=== PATIENT | male | born 1945 | race Caucasian/White ===

== ENCOUNTER 2020-09-12 10:41 | Outpatient (CLI) | payer MEDICARE, OTHER, SELFPAY | END 2020-09-12 10:42 | disposition home or self-care (01) | LOC: ANHAUDASC 10:46 | PROVIDERS: PCP Internal Medicine; Visit Provider Internal Medicine | DX: H90.3 Sensorineural hearing loss, bilateral (principal) | CPT/HCPCS: 92557; 92567 ==

== ENCOUNTER 2021-01-01 14:59 | Emergency (ER) | payer MEDICARE, OTHER, SELFPAY ==
--- NOTE | ~2021-01-01 | CT_ITS ---
EXAMINATION: CT abdomen pelvis w con DATE: 01/01/2021 15:58 INDICATION: Left lower quadrant abdominal pain TECHNIQUE: Computed tomography (CT) of the abdomen and pelvis was performed without intravenous contr ast. Automated exposure control and iterative reconstruction technique were employed. The dose-length product was 358.42 mGy-cm. COMPARISON: None FINDINGS: Mild peripheral reticular opacities in the bilateral lower lungs which could represent atelectasis, m ild pulmonary edema or chronic interstitial lung disease. Heart size is normal. Atherosclerotic coron frederic artery calcifications. Aortic valve calcification. No pericardial or pleural effusion. Liver, gal lbladder, spleen, pancreas, bilateral adrenal glands are normal. 11 mm low-attenuation right renal cy st. 1 mm nonobstructing stone at the left ureteropelvic junction with mild left hydronephrosis, perin ephric stranding and mildly delayed left nephrogram. Bladder is normal. A few scattered colonic diver ticula without adjacent inflammatory change to suggest diverticulitis. Small bowel and appendix are n ormal. No free intraperitoneal gas or fluid. No pathologically enlarged abdominal or pelvic lymphaden opathy. There is calcified atherosclerosis of the aorta and many of the other arteries. Severe lower lumbar spondylosis. IMPRESSION: 1. At least partially obstructing 1 mm stone at the left ureteropelvic junction with mild left hydron ephrosis and mildly delayed left nephrogram. Reviewed, dictated and finalized at location A. OFFICE MANAGER IMPRESSION: 1. At least partially obstructing 1 mm stone at the left ureteropelvic junction with mild left hydronephrosis and mildly delayed left nephrogram.
[2021-01-01 15:03] VITALS: BP 173/94; PULSE 70; RESP 20; TEMP 36.6; O2SAT 100
--- NOTE | 2021-01-01 15:19 | ED.ABDPAIN ---
HPI - Abdominal Pain General Chief Complaint: Abdominal Pain Stated Complaint: abdominal pain Time Seen by Provider: 01/01/21 15:08 Source: patient Mode of arrival: ambulatory Limitations: no limitations History of Present Illness HPI narrative: THis patient is a 75 year old male who presents for evaluation of left lower abdominal pain. His pain started at 9 am this morning. It has been waxing and waning. It is associated with nausea, but he denies vomiting, diarrhea, fever, urinary complaints. He has has not taking anything for pain. HE denies history of diverticulitis. Pain Consistency: intermittent Related Data Home Medications Medication Instructions Recorded Confirmed irbesartan 150 mg PO DAILY 01/01/21 01/01/21 valacyclovir 500 mg PO DAILY 01/01/21 01/01/21 Allergies Allergy/AdvReac Type Severity Reaction Status Date / Time No Known Allergies Allergy Mild Verified 01/01/21 15:05 Review of Systems Review of Systems: All systems reviewed & are unremarkable except as noted in HPI and below PMFSH Past Medical History Medical History (Updated 01/01/21 @ 18:04 by Indira Vasquez MD) Essential hypertension Surgical History Surgical History (Updated 01/01/21 @ 15:22 by Indira Vasquez MD) No pertinent past surgical history Family History Family History (Updated 06/03/19 @ 11:07 by DOCTOR UNKNOWN) Mother Hypertension Family history of malignant neoplasm of breast in first degree relative Family history of lupus erythematosus Sibling Carcinoma of colon Father Patient's father is Social History Social History Smoking status: Light tobacco smoker Smoking end date: 11/18/03 Alcohol intake: current Gender identity (if verbalized by the patient): Male Exam Const: General: no acute distress and alert Orientation/consciousness: patient oriented x3 Eyes: EOM: EOMs intact bilaterally Resp: Effort & Inspection: normal respiratory effort and no retractions Auscultation: clear to auscultation bilaterally Cardio: Rate: regular rate Rhythm: regular rhythm Heart sounds: no murmurs GI: GI Palp: Yes Soft to palpation, Yes Tenderness to palpation present (GI) (LLQ) and No Guarding due to palpation present (GI) Auscultation: normal bowel sounds : General: Yes no CVA tenderness Skin: Rashes: no rashes Neuro: General: patient oriented x3 and moves all extremities Extrem: General: normal to inspection Psych: Mental Status: mental status grossly normal Affect: normal affect Course Reevaluation(s) Reevaluation #1: I Discussed with patient CT showing small kidney stone. I Discussed discharge treatment plan. He has no complaints at this time. Date: 01/01/21 Time: 18:01 Vital Signs Vital signs: Vital Signs Temperature 97.8 F 01/01/21 15:03 Pulse Rate 70 01/01/21 15:03 Respiratory Rate 20 01/01/21 15:03 Blood Pressure 173/94 H 01/01/21 15:03 Pulse Oximetry 100 01/01/21 15:03 Temperature 97.8 F 01/01/21 15:03 Pulse Rate 64 01/01/21 18:30 Respiratory Rate 18 01/01/21 18:30 Blood Pressure 142/70 H 01/01/21 18:30 Pulse Oximetry 96 01/01/21 18:30 MDM - Abdominal Pain Lab Data Attestation: I reviewed the patient's lab results. Result diagrams: 01/01/21 15:17 01/01/21 15:17 Labs: Lab Results 01/01/21 01/01/21 01/01/21 Range/Units 15:17 15:17 16:21 WBC 7.7 (4.5-10.0) K/mm3 RBC 4.90 (4.6-6.20) M/mm3 Hgb 16.4 (14.0-18.0) g/dL Hct 47.0 (42.0-52.0) % MCV 95.9 (80-100) fl MCH 33.5 (26-34) pg MCHC 34.9 (32-36) g/dl RDW 13.2 (11.5-14.5) % Plt Count 242 (150-375) k/mm3 MPV 9.8 (7.4-10.4) fl Immature Gran % (Auto) 0.5 (0-0.5) % Neut % (Auto) 72.2 (45.5-73.1) % Lymph % (Auto) 21.0 (18.3-44.2) % Forest % (Auto) 5.7 (2.6-8.5) % Eos % (Auto) 0.3 (0-4.4) % Baso % (Auto) 0.3 (0.2-1.2) % Lymph # (Auto)
[2021-01-01 15:24] LABS: Basophils Percent Auto 0.3 % (0.2-1.2); Eosinophils Percent Auto 0.3 % (0-4.4); Hemoglobin 16.4 g/dL (14.0-18.0); Immature Granulocyte Absolute 0.04 K/mm3 (0.00-0.031); Immature Granulocyte Percent A 0.5 % (0-0.5); Lymphocytes Absolute Auto 1.62 K/mm3 (0.9-3.2); Mean Corpuscular HGB Conc 34.9 g/dl (32-36); Mean Corpuscular Hemoglobin 33.5 pg (26-34); Mean Corpuscular Volume 95.9 fl (80-100); Mean Platelet Volume 9.8 fl (7.4-10.4); Monocytes Absolute Auto 0.4 K/mm3 (0.1-0.6); Monocytes Percent Auto 5.7 % (2.6-8.5); Neutrophils Absolute Auto 5.6 K/mm3 (1.3-6.7); Neutrophils Percent Auto 72.2 % (45.5-73.1); Platelet Count Result 242 k/mm3 (150-375); Red Cell Distribution Width 13.2 % (11.5-14.5); White Blood Count 7.7 K/mm3 (4.5-10.0)
[2021-01-01] MEDS: LACTATED RINGERS 1,000 ML 999 ML IV CONT (15:28)
[2021-01-01] MEDS: ONDANSETRON INJ 4 MG/2 ML VIAL IV PUSH (15:29)
[2021-01-01] MEDS: MORPHINE SULFATE (*CRX) 4 MG/ML INJ IV PUSH (15:29)
[2021-01-01 15:37] LABS: Alanine Aminotransferase 19 U/L (4-50); Albumin Level 4.8 g/dL (3.5-5.1); Alkaline Phosphatase 87 U/L (38-126); Anion Gap 8 mmol/L (8-16); Aspartate Amino Transferase 21 U/L (17-59); Bilirubin,Total 0.7 mg/dL (0.2-1.3); Blood Urea Nitrogen 13 mg/dL (9-20); Carbon Dioxide 26 mmol/L (22-30); Chloride 102 mmol/L (98-107); Estimated CRCL calculation 72 ml/min; Estimated Glomerular Filt Rate > 60; Glucose 114 mg/dL (75-110); Lipase 50 U/L (23-300); Sodium 136 mmol/L (137-145)
[2021-01-01 16:33] LABS: Add Urine Microscopic? YES; Appearance Urine Clear (Clear); Bilirubin Urine Negative (Negative); Blood Urine Negative (Negative); Color Urine Yellow (Yellow); Glucose Urine UA Negative (Negative); Ketones Urine Trace mg/dL (Negative); Leukocyte Esterase Ur Negative LEU/UL (Negative); Mucus Urine Rare /lpf; Nitrate Urine Negative (Negative); Protein Urine Negative (Negative); Specific Grav Ur 1.017 (1.001-1.035); Urobilinogen Urine Negative mg/dL (<2.0); WBC Urine 0-3 /hpf
[2021-01-01] MEDS: KETOROLAC 30 MG/ML VIAL (*BKC) IV PUSH (16:52)
[2021-01-01] MEDS: TAMSULOSIN HCL 0.4 MG CAPSULE PO (16:53)
[2021-01-01 18:30] VITALS: BP 142/70; PULSE 64; RESP 18; O2SAT 96
== END 2021-01-01 18:30 | disposition home or self-care (01) ==
PROVIDERS: Emergency Provider General Practice; PCP Internal Medicine
DX: N13.2 Hydronephrosis with renal and ureteral calculous obstruction (principal); I10 Essential (primary) hypertension; Z87.891 Personal history of nicotine dependence
CPT/HCPCS: 36415; 74177; 80053; 81001; 83690; 85025; 96361; 96374; 96375; 99284; A9270; J1885; J2270; J2405; J7120; Q9967

== ENCOUNTER 2021-01-11 13:19 | Outpatient (CLI) | payer MEDICARE, OTHER, SELFPAY ==
[2021-01-11 13:55] LABS: Anion Gap 6 mmol/L (8-16); Blood Urea Nitrogen 21 mg/dL (9-20); Calcium 9.4 mg/dL (8.4-10.2); Carbon Dioxide 28 mmol/L (22-30); Chloride 104 mmol/L (98-107); Estimated Glomerular Filt Rate > 60; Glucose 160 mg/dL (75-110); Potassium 3.6 mmol/L (3.4-5.0); Sodium 138 mmol/L (137-145)
[2021-01-11 14:35] LABS: Vitamin D 25 Hydroxy 71.3 ng/mL
== END 2021-01-11 13:20 | disposition home or self-care (01) ==
LOC: ANHLAB 13:21
PROVIDERS: PCP Internal Medicine; Visit Provider Internal Medicine
DX: I10 Essential (primary) hypertension (principal); E55.9 Vitamin D deficiency, unspecified
CPT/HCPCS: 36415; 80048; 82306

== ENCOUNTER 2021-07-27 09:08 | Outpatient (CLI) | payer MEDICARE, OTHER, SELFPAY ==
[2021-07-27 10:09] LABS: Anion Gap 6 mmol/L (8-16); Blood Urea Nitrogen 15 mg/dL (9-20); Calcium 9.7 mg/dL (8.4-10.2); Carbon Dioxide 26 mmol/L (22-30); Chloride 106 mmol/L (98-107); Cholesterol 209 mg/dL (0-200); Estimated Glomerular Filt Rate > 60; Glucose 95 mg/dL (65-110); HDL Direct 60 mg/dL; Sodium 138 mmol/L (137-145); Triglycerides 80 mg/dL (<150)
[2021-07-27 10:20] LABS: LDL Cholesterol Direct 110 mg/dL
[2021-07-27 10:43] LABS: Hemoglobin A1C 5.2 % (<5.7)
== END 2021-07-27 09:09 | disposition home or self-care (01) ==
LOC: ANHLAB 09:14
PROVIDERS: PCP Internal Medicine; Visit Provider Nurse Practitioner
DX: Z12.5 Encounter for screening for malignant neoplasm of prostate (principal); R73.02 Impaired glucose tolerance (oral); Z13.220 Encounter for screening for lipoid disorders; I10 Essential (primary) hypertension
CPT/HCPCS: 36415; 80048; 80061; 83036; 84153; G0103

== ENCOUNTER 2021-08-09 10:04 | Outpatient (CLI) | payer MEDICARE, OTHER, SELFPAY | END 2021-08-09 10:05 | disposition home or self-care (01) | PROVIDERS: PCP Internal Medicine; Visit Provider Internal Medicine | DX: R53.83 Other fatigue (principal) | CPT/HCPCS: 36415; 84443 ==

== ENCOUNTER 2021-08-12 13:51 | Emergency (ER) | payer MEDICARE, OTHER, SELFPAY ==
--- NOTE | ~2021-08-12 | CT_ITS ---
EXAMINATION: CT abdomen pelvis wo con DATE: 08/12/2021 16:06 INDICATION: Left flank pain TECHNIQUE: Computed tomography (CT) of the abdomen and pelvis was performed without intravenous contr ast. Automated exposure control and iterative reconstruction technique were employed. The dose-length product was 178.12 mGy-cm. COMPARISON: 01/01/2021 FINDINGS: Minimally bibasilar atelectasis. Heart size is normal. Atherosclerotic coronary artery calcific locat ion. Aortic valve calcific location. No pericardial or pleural effusion. Liver, gallbladder, spleen, pancreas, bilateral adrenal glands and kidneys are normal. No urolithiasis or hydronephrosis. There a re few scattered colonic diverticula without adjacent inflammatory change to suggest diverticulitis. Small bowel and appendix are normal. There is calcified atherosclerosis of the aorta and many of the other arteries. Bladder is normal. Mild prostatomegaly No free intraperitoneal gas or fluid. No patho logically enlarged abdominal or pelvic lymphadenopathy. Severe lower lumbar spondylosis. IMPRESSION: 1. No urolithiasis or other acute intra-abdominal/pelvic process. Reviewed, dictated and finalized at location A.
[2021-08-12 14:10] VITALS: BP 157/65; PULSE 76; RESP 16; TEMP 36.6; O2SAT 100
[2021-08-12 14:28] LABS: Basophils Percent Auto 0.4 % (0.2-1.2); Eosinophils Absolute Auto 0.1 K/mm3 (0-0.3); Eosinophils Percent Auto 0.7 % (0-4.4); Hematocrit 43.1 % (42.0-52.0); Hemoglobin 15.3 g/dL (14.0-18.0); Immature Granulocyte Absolute 0.03 K/mm3 (0.00-0.031); Immature Granulocyte Percent A 0.3 % (0-0.5); Lymphocytes Absolute Auto 2.72 K/mm3 (0.9-3.2); Lymphocytes Percent Auto 30.6 % (18.3-44.2); Mean Corpuscular HGB Conc 35.5 g/dl (32-36); Mean Corpuscular Hemoglobin 33.8 pg (26-34); Mean Corpuscular Volume 95.4 fl (80-100); Mean Platelet Volume 9.6 fl (7.4-10.4); Monocytes Absolute Auto 0.6 K/mm3 (0.1-0.6); Monocytes Percent Auto 6.9 % (2.6-8.5); Neutrophils Absolute Auto 5.4 K/mm3 (1.3-6.7); Neutrophils Percent Auto 61.1 % (45.5-73.1); Platelet Count Result 211 k/mm3 (150-375); Red Blood Count 4.52 M/mm3 (4.6-6.20); Red Cell Distribution Width 12.7 % (11.5-14.5); White Blood Count 8.9 K/mm3 (4.5-10.0)
[2021-08-12 14:42] LABS: Anion Gap 5 mmol/L (8-16); Blood Urea Nitrogen 15 mg/dL (9-20); Calcium 9.5 mg/dL (8.4-10.2); Carbon Dioxide 27 mmol/L (22-30); Chloride 102 mmol/L (98-107); Estimated CRCL calculation 68 ml/min; Estimated Glomerular Filt Rate > 60; Glucose 175 mg/dL (65-110); Potassium 3.9 mmol/L (3.4-5.0); Sodium 134 mmol/L (137-145)
[2021-08-12 16:06] VITALS: BP 126/89; PULSE 72; RESP 16; TEMP 37.1; O2SAT 97
[2021-08-12 16:48] LABS: Add Urine Microscopic? YES; Appearance Urine Clear (Clear); Bilirubin Urine Negative (Negative); Blood Urine 3+ (Negative); Color Urine Yellow (Yellow); Glucose Urine UA Negative (Negative); Ketones Urine Negative (Negative); Leukocyte Esterase Ur Negative LEU/UL (Negative); Mucus Urine Rare /lpf; Nitrate Urine Negative (Negative); Protein Urine Negative (Negative); RBC Urine 21-50 /hpf (0-2); Specific Grav Ur 1.011 (1.001-1.035); Urobilinogen Urine Negative mg/dL (<2.0); WBC Urine 0-3 /hpf
--- NOTE | 2021-08-12 17:04 | ED.ABDPAIN ---
HPI - Abdominal Pain General Chief Complaint: Urogenital-Male Stated Complaint: passing a kidney stone Time Seen by Provider: 08/12/21 15:45 History of Present Illness HPI narrative: Patient presents with left-sided flank pain. Patient reports a history of stones and feels his symptoms are similar to his prior stones. Symptoms started this morning was unable to control his symptoms at home so he came to the ER for evaluation. Denies any pain with urination or hematuria. Pain is crampy, constant, radiates to his abdomen, no clear aggravating or alleviating factors. reports on arrival to the ER his symptoms are improving. Related Data Allergies Allergy/AdvReac Type Severity Reaction Status Date / Time No Known Allergies Allergy Mild Verified 08/02/21 09:20 Review of Systems Review of Systems: CONSTITUTIONAL: Denies fever, chills, or sweats. EYES: Denies visual changes, redness, or discharge. ENT: Denies rhinorrhea, congestion, sore throat, or otalgia. CARDIOVASCULAR: Denies chest pain, palpitations, or edema. RESPIRATORY: Denies cough or dyspnea. GASTROINTESTINAL: Denies nausea, vomiting, or diarrhea. GENITOURINARY: Denies dysuria or hematuria. SKIN: Denies rash or itching. MUSCULOSKELETAL: Denies back pain, joint pain, or myalgia. NEUROLOGIC: Denies headache, numbness, dizziness, or weakness. PSYCHIATRIC: Denies anxiety or depression. All systems reviewed & are unremarkable except as noted in HPI and below PMFSH Past Medical History Medical History Essential hypertension Surgical History Surgical History No pertinent past surgical history Family History Family History Mother Hypertension Family history of malignant neoplasm of breast in first degree relative Family history of lupus erythematosus Sibling Carcinoma of colon Father Patient's father is Social History Social History (Updated 08/02/21 @ 09:24 by Radhika Betancourt) Smoking packs per day: 0.5 Smoking cigarettes per day: 10.0 Years smoked: 30 Smoking pack-years: 15.00 Smoking status: Current every day smoker (cigars) Tobacco type: cigars Alcohol intake: current Drinks per week: 3 Alcohol use details: social Substance use: never Gender identity (if verbalized by the patient): Male Exam Narrative: GENERAL: Well-appearing, well-nourished, and in no acute distress. HEAD: Normocephalic, atraumatic. EYES: PERRLA and EOMI. ENT: Nares clear, no rhinorrhea or epistaxis. Mucous membranes moist. NECK: Supple. No masses. No JVD ABDOMEN: Soft, nontender, nondistended, no CVA tenderness EXTREMITIES: Normal range of motion. No edema. SKIN: Warm, dry, no rash. NEURO: No focal deficits. Alert and oriented x3. PSYCH: Normal mood and affect. Course Reevaluation(s) Reevaluation #1: Patient resting comfortably continue has improvement in symptoms results and plan reviewed with patient. Patient comfortable outpatient plan. Date: 08/12/21 Time: 17:06 Vital Signs Vital signs: Vital Signs Temperature 36.6 C 08/12/21 14:10 Pulse Rate 76 08/12/21 14:10 Respiratory Rate 16 08/12/21 14:10 Blood Pressure 157/65 H 08/12/21 14:10 Pulse Oximetry 100 08/12/21 14:10 Temperature 37.1 C 08/12/21 16:06 Pulse Rate 72 08/12/21 16:06 Respiratory Rate 16 08/12/21 16:06 Blood Pressure 126/89 08/12/21 16:06 Pulse Oximetry 97 08/12/21 16:06 MDM - Abdominal Pain MDM Narrative Medical decision making narrative: H&P as above, vss, pt looks clinically well, exam with unable to reproduce pain with palpation, labs with hematuria, img unremarkable for acute process, additional labs/img considered, symptomatic relief available as needed, on reevaluation pt continues to looks clinically well. Symptoms may represent recent passage of st
== END 2021-08-12 17:37 | disposition home or self-care (01) ==
LOC: ANHED 17:12
PROVIDERS: Emergency Provider Emergency Medicine; PCP Internal Medicine
DX: R10.9 Unspecified abdominal pain (principal); R31.29 Other microscopic hematuria; I10 Essential (primary) hypertension; Z87.442 Personal history of urinary calculi; F17.290 Nicotine dependence, other tobacco product, uncomplicated
CPT/HCPCS: 36415; 74176; 80048; 81001; 85025; 99284

== ENCOUNTER 2021-10-19 14:10 | Outpatient (CLI) | payer MEDICARE, OTHER, SELFPAY ==
--- NOTE | ~2021-10-19 | XR_ITS ---
XR hip RT min 2V 10/19/2021 14:33 Indication: Right hip pain Procedure: 2 views right hip Comparison: No prior studies for comparison. Findings: There is mild osteoarthritis of the right hip. No fracture, subluxation or dislocation. The re is moderate lower lumbar spondylosis. Sacral foramen are symmetric. Impression: 1: Mild osteoarthritis of the right hip. Reviewed, dictated and finalized at location B. TACKER Impression: 1: Mild osteoarthritis of the right hip.
== END 2021-10-19 14:11 | disposition home or self-care (01) ==
LOC: ANHIMG 14:13
PROVIDERS: PCP Internal Medicine; Visit Provider Internal Medicine
DX: M16.11 Unilateral primary osteoarthritis, right hip (principal)
CPT/HCPCS: 73502

== ENCOUNTER 2021-11-23 14:00 | Outpatient (RCR) | payer MEDICARE, OTHER, SELFPAY ==
--- NOTE | 2021-11-08 14:50 | PTOPEVAL ---
PHYSICAL THERAPY EVALUATION AND PLAN OF CARE 11-08-21 Thank you for referring Matthew Benavides to [facility].? His diagnosis is R hip pain, but it is pain referred from his back, so the PT treatment plan is directed to his lumbar spine. Jaun is scheduled to be seen for therapy? 2 x/week for 2 weeks. Please review, sign, date and return this plan of care JONG. I agree with and certify that the following plan of care is medically necessary. Referring Physician Date Attending Provider: Isma Ledbetter DO PT Outpatient Evaluation Start: 11/08/21 14:03 Document 11/08/21 14:00 BRIGETTE (Rec: 11/08/21 14:19 BRIGETTE [id number]) Past Medical History Source of Past Medical History Patient Neurological History Hx Neurological Disorders No Significant History Cardiovascular History Hx Hypertension Yes: meds Respiratory History Hx Respiratory Disorders No Significant History Gastrointestinal History Hx Gastrointestinal Disorders No Significant History Genitourinary History Hx Kidney Stones Yes Musculoskeletal History Hx Arthritis Yes: R hip OA Hx Back Pain Yes: chronic issues with pain in back Endocrine History Hx Endocrine Disorders No Significant History HEENT History Hx Sinus Problems Yes: allergies Other History Hx Other Medical Conditions Yes: have had covid vaccine and booster Evaluation Information Problem Diagnosis R hip pain Onset April 2021 Subjective Information gradual increase in hip pain, Query Text:As Reported By Patient/ no trauma or injury to hip Family Diagnostic Tests X-Rays For This Problem Yes: R hip arthritis Prior Level of Function Activity Level (Last 3 Months) Occupation retired Activity of Daily Living Ability Independent Indoor/Home Mobility Independent Community Mobility Independent Stairs Ability Independent Functional Cognition (Planning, Shopping Independent , Taking Medications) Cooking Yes Cleaning Yes Laundry Yes Shopping Yes Driving Yes Home Setting Mobility Assistive Devices (Used Last 3 None Months) Comments Additional Prior Level of Function active, limited some due to Comments tired and run out of steam ; do not normally do any exercises; Pain Assessment Timing of Pain Assessment Timing of Pain Assessment Assessment Pain Scale Pain Scale Used Numeric (1 - 10) Self Report Pain Assessment Right Hip(s) Reported Pain Level
--- NOTE | 2021-11-23 14:44 | PTOPEVAL ---
PHYSICAL THERAPY DISCHARGE 11-23-21 Refer to the clinical summary below for his status today, compared to the initial evaluation. He will be discharged from PT at this time. The goals were partially achieved. He is to continue with his exercises at home and monitoring his posture with activities. And balance his activity and rest to manage his pain. Thank you for referring Matthew Benavides to [facility].? Please review, sign, date and return this Discharge report JONG. I agree with and certify that the following plan of care is medically necessary. Referring Physician Date Attending Provider: Isma Ledbetter DO Document 11/23/21 14:00 BRIGETTE (Rec: 11/23/21 14:44 BRIGETTE [id number]) Assessment Status Discharge Subjective Information Jaun reports: therapy has Query Text:As Reported By Patient/ helped, feel like hip pain is Family coming from the back also, after treatment to his back, did not have any pain; Pain Assessment Timing of Pain Assessment Timing of Pain Assessment Assessment Pain Scale Pain Scale Used Numeric (1 - 10) Self Report Pain Assessment Right Hip(s) Reported Pain Level 2 Pain Frequency Chronic,Intermittent Other Pain Description lateral hip joint R Lowest Pain Intensity 0 Greatest Pain Intensity 8 Pain Aggravating Factors Exercise/Activity,Walking, Weight Bearing/Standing Other Pain Aggravating Factors ladder with home project;walk onset pain with 15-20 steps; standing worst Pain Score Pain Score 2: Self Report Additional Pain Score Comments at home, have been working on [employer]- up and down [employer], have to take a rest break due to pain; Interventions Used Interventions Used By Clinicians Education,Exercise Pain Relief Interventions Used By Inactivity/Rest,Position Patient Change,Sitting Cervical and Lumbar ROM Lumbar ROM Lumbar Comments standing trunk flexion: hands to mid [place] without pain increase; Lower Extremity Range of Motion General Lower Extremity Range of Motion Gross Lower Extremity Range of Motion R LE: supine hamstring stretch Comments with SLR to 70'; hip IR without pain but reports tight at end range; piriformis stretch with hip/knee>90'- R to mid line of body and L across midline; -prone on elbow stretch; prone knee flexion passive stretch,
== END 2021-11-24 08:19 | disposition home or self-care (01) ==
LOC: ANHPT 14:00
PROVIDERS: PCP Internal Medicine; Visit Provider Internal Medicine
DX: M25.551 Pain in right hip (principal)
CPT/HCPCS: 97012; 97014; 97110; 97140; 97161; G0283

== ENCOUNTER 2021-12-05 00:27 | Day surgery (SDC) | payer MEDICARE, OTHER, SELFPAY ==
[2021-11-20 13:52] VITALS: BMI 24.6
[2021-12-05 07:42] VITALS: BP 160/86; PULSE 76; RESP 18; TEMP 36.4; O2SAT 99
[2021-12-05] MEDS: LACTATED RINGERS 1,000 ML 150 ML IV CONT (07:45)
--- NOTE | 2021-12-05 07:57 | WPDANESEPPF ---
Anes - Initial Pre Proc Eval Procedure: Operation Date: 12/05/21 09:00 Proposed Procedures p Screening Colonoscopy - Augie Hedrick MD Date/Time: 12/05/21 07:57 Surgeon: Augie Hedrick MD Pre Op Diagnosis: hx of colon polyps Patient Data Age: 76 Gender: M Height: 1.73 m Weight: 72.9 kg Last Vital Signs Temp 36.4 C 12/05/21 07:42 Pulse 76 12/05/21 07:42 Resp 18 12/05/21 07:42 BP 160/86 H 12/05/21 07:42 Pulse Ox 99 12/05/21 07:42 Allergies Allergy/AdvReac Type Severity Reaction Status Date / Time No Known Allergies Allergy Mild Verified 12/05/21 07:41 Home Medications Medication Instructions Recorded Confirmed Type fluticasone propionate 50 2 spray INTRANASAL DAILY #16 g 08/14/21 12/05/21 Rx mcg/actuation nasal spray,suspension irbesartan 150 mg tablet See Rx Instructions .ROUTE 09/08/21 12/05/21 Rx .COMPLEX #90 each valacyclovir 500 mg tablet 500 mg PO DAILY #90 tablet 11/13/21 12/05/21 Rx Patient hx anesthesia problems: none Family hx anesthesia problems: none Results Review: All pre-operative results and documents have been reviewed as part of the pre-operative evaluation. [facility] Past Medical History Medical History Essential hypertension Surgical History Surgical History (Updated 12/05/21 @ 07:58 by Charanjit Levine MD) H/O colonoscopy No pertinent past surgical history Family History Family History Mother Hypertension Family history of malignant neoplasm of breast in first degree relative Family history of lupus erythematosus Sibling Carcinoma of colon Father Patient's father is Social History Social History (Updated 10/19/21 @ 13:27 by Radhika Wheeler) Smoking packs per day: 0.5 Smoking cigarettes per day: 10.0 Years smoked: 30 Smoking pack-years: 15.00 Smoking status: Current every day smoker Tobacco type: cigarettes Smoking end date: 11/18/04 Additional smoking assessment comments: CURRENTLY SMOKES 2 CIGARS DAILY Alcohol intake: current Drinks per week: 6 Alcohol use details: social Substance use: never Substance use type: does not use Living arrangements: with family Gender identity (if verbalized by the patient): Male Spiritual care concerns: No Anes - Eval Final PreProcedure Day of Procedure 12/05/21 07:57 Patient weight: normal Heart: regular rate and rhythm Lungs: clear to auscultation Airway: Mallampati scale class 1 Neurological: alert and oriented Last oral intake: >/= 8 hours ASA classification: II Emergent: no Anesthetic plan: proceed Anesthesia type and monitoring: general GIVS and standard monitoring Results Review: All pre-operative results and documents have been reviewed as part of the pre-operative evaluation. Informed Consent: The patient's anesthetic plan and its attendant risks and benefits were discussed with the patient/family/POA. Questions were solicited and answers provided to the satisfaction of the patient/family/POA.
--- NOTE | 2021-12-05 08:20 | WPDGICN ---
Assessment and Plan Assessment and plan (1) History of colon polyps: Code(s): Z86.010 - Personal history of colonic polyps Status: Acute Assessment and Plan: Patient has a history of adenomatous colon polyps removed from the colon 2019. Plan is for surveillance colonoscopy now and at 5 year intervals in the future. (2) Family hx of colon cancer: Code(s): Z80.0 - Family history of malignant neoplasm of digestive organs Status: Acute Assessment and Plan: Patient's brother and uncle both have had colon cancer. Plan is for surveillance colonoscopy at 5 year intervals. GI Consult Note Consult date/time: 12/05/21 08:20 HPI: Matthew Benavides is a 76 year old male Presents for screening colonoscopy. Patient has a history of adenomatous colon polyps removed from the colon in 2019. Patient his current weight appetite bowel movements are normal. He denies abdominal pain. He has had no bleeding. Family history is significant for brother and uncle both had colon cancer. Review of Systems Review of Systems: All systems reviewed & are unremarkable except as noted in HPI and below PMFSH Past Medical History Medical History (Updated 12/05/21 @ 08:22 by Augie Hedrick MD) Essential hypertension Surgical History Surgical History (Updated 12/05/21 @ 07:58 by Charanjit Levine MD) H/O colonoscopy No pertinent past surgical history Family History Family History Mother Hypertension Family history of malignant neoplasm of breast in first degree relative Family history of lupus erythematosus Sibling Carcinoma of colon Father Patient's father is Social History Social History (Updated 10/19/21 @ 13:27 by Radhika Wheeler) Smoking packs per day: 0.5 Smoking cigarettes per day: 10.0 Years smoked: 30 Smoking pack-years: 15.00 Smoking status: Current every day smoker Tobacco type: cigarettes Smoking end date: 11/18/04 Additional smoking assessment comments: CURRENTLY SMOKES 2 CIGARS DAILY Alcohol intake: current Drinks per week: 6 Alcohol use details: social Substance use: never Substance use type: does not use Living arrangements: with family Gender identity (if verbalized by the patient): Male Spiritual care concerns: No Meds Home Medications and Allergies Home Medications Medication Instructions Recorded Confirmed Type fluticasone propionate 50 2 spray INTRANASAL DAILY #16 g 08/14/21 12/05/21 Rx mcg/actuation nasal spray,suspension irbesartan 150 mg tablet See Rx Instructions .ROUTE 09/08/21 12/05/21 Rx .COMPLEX #90 each valacyclovir 500 mg tablet 500 mg PO DAILY #90 tablet 11/13/21 12/05/21 Rx Allergies Allergy/AdvReac Type Severity Reaction Status Date / Time No Known Allergies Allergy Mild Verified 12/05/21 07:41 Vital Signs Vital Signs - 24 hr 12/05/21 07:42 Temperature 97.6 F Pulse Rate 76 Respiratory Rate 18 Blood Pressure 160/86 H Pulse Oximetry 99 Exam Narrative: Physical exam reveals patient to be alert. Vital signs stable. HEENT exam is unremarkable. Patient is anicteric. Lungs are clear to auscultation and percussion. Heart is without murmur or extra sounds. Abdominal exam bowel sounds are present soft nontender with no hepatosplenomegaly. Digital external rectal exam is normal.
[2021-12-05 09:17] VITALS: BP 102/63; PULSE 67; RESP 13; O2SAT 96
[2021-12-05 09:27] VITALS: BP 133/69; PULSE 68; RESP 20; O2SAT 99
[2021-12-05 09:37] VITALS: BP 142/82; PULSE 59; RESP 24; O2SAT 98
== END 2021-12-05 09:49 | disposition home or self-care (01) ==
PROVIDERS: PCP Internal Medicine; Visit Provider Internal Medicine Gastroenterology
PROC: 0DJD8ZZ Inspection of Lower Intestinal Tract, Via Natural or Artificial Opening Endoscopic (ICD-10-PCS; CPT 45378; principal; 2021-12-05 09:00)
DX: Z12.11 Encounter for screening for malignant neoplasm of colon (principal); D12.5 Benign neoplasm of sigmoid colon; K57.30 Diverticulosis of large intestine without perforation or abscess without bleeding; K64.8 Other hemorrhoids; K63.5 Polyp of colon; Z80.0 Family history of malignant neoplasm of digestive organs; I10 Essential (primary) hypertension; F17.210 Nicotine dependence, cigarettes, uncomplicated
CPT/HCPCS: 45385; 88305; J2704; J7120

== ENCOUNTER 2021-12-07 01:34 | Day surgery (SDC) | payer MEDICARE, OTHER, SELFPAY ==
[2021-12-01 10:40] VITALS: BMI 24.6
[2021-12-01 10:45] VITALS: BMI 24.6
--- NOTE | 2021-12-01 10:47 | PC.NURSE ---
Report to the Outpatient Waiting Room, entrance under the green pavilion located off [facility], at time __1000 on date ___12/07/21____. OR Time: ___1200 . - You and your visitor will be asked a series of questions to screen for COVID 19 for your protection. - A mask is required within the hospital. - Only one visitor is allowed at this time. Patient visitors will be guided where to wait when not with patient. Preoperative COVID Testing Requirements: No COVID Test needed if: (proof is required; if not received patient will have Rapid Test prior to entry) - Patient has received COVID Vaccine at least 14 days prior to procedure date or - Patient has positive COVID test result within last 90 days of surgery date. COVID Test needed if above criteria is not met If not COVID vaccinated a COVID test must be conducted within 72 hours of surgery and patient is asked to isolate self from time of testing until procedure. You will go to the [facility] for your COVID testing. The [facility] is located at the corner of [address] from [facility]. You will only be called if COVID results are positive and your surgeon may reschedule your elective surgery date. Patients may have clear liquids (water, carbonated beverages, clear teas, apple juice) until 3 hours prior to surgery with a maximum of 20 ounces. - No food from midnight until time of surgery - Infants may have breast milk until 4 hours before surgery, formula 6 hours prior to surgery. - Children will be allowed to drink immediately following surgery. If applicable, please bring a bottle or sippy cup to assist with drinking. Juice, water, soda, and popsicles are readily available. For infants on formula, please bring formula the day of surgery. Pacifiers are allowed. Take the following medications with a SIP of water the morning of surgery: NONE Medications to discontinue per physician NONE Date to take last dose Please no make-up, nail bengali, hairspray, perfume, deodorant, or body powder the day of surgery. No jewelry (including any body piercings) or valuables the day of surgery, leave them at home. Please take a shower or bath the night before, or the morning of, surgery with an antibacterial soap. Wear comfortable, loose fitting clothing. Children are encouraged to wear pajamas. - Jewelry must be removed prior to entering the operating room. Rings and piercings that are not removed may be cut off. - The hospital will not accept responsibility for valuables. - Please leave all valuables, including medications, at home the day of surgery. If you are going home after surgery, a licensed cdl a driver must drive you home. - NO public transportation without another adult. - We recommend that an adult stay with you for 24 hours following discharge. - We also recommend that you do not drive, make important decision, drink alcoholic beverages, or take any drugs that were not prescribed by your health care provider for at least 24 hours after your discharge time. For Pediatric surgeries, we recommend two adults accompany the child home (only one inside the building at this time). Follow any additional instructions given to you from your surgeon. Telephone instructions given to _PATIENT and asked if any additional questions and then verbalized understanding. Patient advised to call surgeon office or pre surgery nurse liaison [phone] if any additional questions.
--- NOTE | 2021-12-06 16:03 | P.PNAN_ITS ---
Anes - Initial Pre Proc Eval Procedure: Operation Date: 12/07/21 11:30 Proposed Procedures p Left Palmar Fasciectomy with Left A-1 Alesia Release to Fourth Ray - Richard Love MD Date/Time: 12/06/21 16:03 Surgeon: Richard Love MD Pre Op Diagnosis: Left de quervain's tenosynovitis Patient Data Age: 76 Gender: M Height: 1.73 m Weight: 73.5 kg Allergies Allergy/AdvReac Type Severity Reaction Status Date / Time No Known Allergies Allergy Mild Verified 12/07/21 09:49 Home Medications Medication Instructions Recorded Confirmed Type fluticasone propionate 50 2 spray INTRANASAL DAILY #16 g 08/14/21 12/07/21 Rx mcg/actuation nasal spray,suspension irbesartan 150 mg tablet See Rx Instructions .ROUTE 09/08/21 12/07/21 Rx .COMPLEX #90 each valacyclovir 500 mg tablet 500 mg PO DAILY #90 tablet 11/13/21 12/07/21 Rx Patient hx anesthesia problems: none Family hx anesthesia problems: none Results Review: All pre-operative results and documents have been reviewed as part of the pre-operative evaluation. FORMERLY [facility], [facility] Past Medical History Medical History Essential hypertension Nephrolithiasis Smoker Surgical History Surgical History (Updated 12/05/21 @ 07:58 by Charanjit Levine MD) H/O colonoscopy No pertinent past surgical history Family History Family History Mother Hypertension Family history of malignant neoplasm of breast in first degree relative Family history of lupus erythematosus Sibling Carcinoma of colon Father Patient's father is Social History Social History (Updated 10/19/21 @ 13:27 by Radhika Wheeler) Smoking packs per day: 0.5 Smoking cigarettes per day: 10.0 Years smoked: 30 Smoking pack-years: 15.00 Smoking status: Current every day smoker (cigars) Tobacco type: cigars Additional smoking assessment comments: CURRENTLY SMOKES 2 CIGARS DAILY Alcohol intake: current Drinks per week: 3 Alcohol use details: social Substance use: never Substance use type: does not use Living arrangements: with family Gender identity (if verbalized by the patient): Male Spiritual care concerns: No Anes - Eval Final PreProcedure Day of Procedure 12/06/21 16:03 Patient weight: normal Heart: regular rate and rhythm Lungs: clear to auscultation and normal air movement Airway: Mallampati scale class II Neurological: alert and oriented Last oral intake: >/= 8 hours ASA classification: II Emergent: no Anesthetic plan: proceed Anesthesia type and monitoring: general GIVS and LMA Results Review: All pre-operative results and documents have been reviewed as part of the pre-operative evaluation. Informed Consent: The patient's anesthetic plan and its attendant risks and benefits were discussed with the patient/family/POA. Questions were solicited and answers provided to the satisfaction of the patient/family/POA.
[2021-12-07 09:54] VITALS: BP 149/82; PULSE 71; RESP 20; TEMP 36.5; O2SAT 97
[2021-12-07] MEDS: LACTATED RINGERS 1,000 ML 30 ML IV CONT (10:10)
[2021-12-07] MEDS: LIDO 1%/EPINEPHRINE 1:100,000 50 ML VIAL 20 ML INFILTRATE (11:38)
[2021-12-07 12:16] VITALS: BP 137/71; PULSE 71; RESP 16; O2SAT 97
--- NOTE | 2021-12-07 12:36 | W.PM.PROC2 ---
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 The patient was then taken to the operating room placed supine on the operating table. A time-out was held and confirmed. He was given IV sedation. The extremity was prepped and draped in usual fashion. The extremity was exsanguinated with an Esmarch wrap. The tourniquet was inflated to 250 mmHg. The marked incision site was infiltrated with 1% lidocaine with epinephrine. The transverse incision just proximal to the distal palmar crease was made and the skin flaps were carefully elevated in both directions. The dense cord was easily identified and followed proximally and distally for just over an inch. The neurovascular bundles on both sides were identified. The cord was released with scissor and knife dissection. The neurovascular bundles were confirmed to be intact with that. We then explored for the A1 devin . This was identified and incised with a 15 blade. The tendons were able to be pulled easily upper outer that gap and the sheath confirming full passive range of motion without evidence of chronic synovitis. The tourniquet was released. The skin was closed with a running 4-0 nylon suture. The small bandage was applied and the patient was discharged instructions in wound care and follow-up. There were no complications. Estimated Blood Loss 2 Drains No Packing No Pathology none sent Complications No immediate complications Condition stable Disposition same day
[2021-12-07 12:45] VITALS: BP 130/70; PULSE 77; RESP 16
[2021-12-07 13:15] VITALS: BP 128/72; PULSE 82; RESP 16
== END 2021-12-07 13:30 | disposition home or self-care (01) ==
PROVIDERS: PCP Internal Medicine; Visit Provider Plastic Surgery
PROC: (CPT 26045; principal; 2021-12-07 11:30)
DX: M65.4 Radial styloid tenosynovitis [de Quervain] (principal); M72.0 Palmar fascial fibromatosis [Dupuytren]; I10 Essential (primary) hypertension; F17.290 Nicotine dependence, other tobacco product, uncomplicated
CPT/HCPCS: 26045; A9270; J2704; J3010; J7120

== ENCOUNTER 2022-02-15 11:47 | Outpatient (CLI) | payer MEDICARE, OTHER, SELFPAY ==
[2022-02-15 12:22] LABS: Alanine Aminotransferase 15 U/L (4-50); Albumin Level 4.5 g/dL (3.5-5.1); Alkaline Phosphatase 83 U/L (38-126); Anion Gap 8 mmol/L (8-16); Aspartate Amino Transferase 22 U/L (17-59); Bilirubin,Total 0.7 mg/dL (0.2-1.3); Blood Urea Nitrogen 14 mg/dL (9-20); Carbon Dioxide 24 mmol/L (22-30); Chloride 104 mmol/L (98-107); Cholesterol 212 mg/dL (0-200); Estimated Glomerular Filt Rate > 60; Glucose 97 mg/dL (65-110); HDL Direct 53 mg/dL; Potassium 4.3 mmol/L (3.4-5.0); Sodium 136 mmol/L (137-145); Triglycerides 84 mg/dL (<150)
[2022-02-15 12:32] LABS: LDL Cholesterol Direct 117 mg/dL
[2022-02-15 13:22] LABS: Vitamin D 25 Hydroxy 72.8 ng/mL
== END 2022-02-15 11:48 | disposition home or self-care (01) ==
PROVIDERS: PCP Internal Medicine; Visit Provider Internal Medicine
DX: Z51.81 Encounter for therapeutic drug level monitoring (principal); Z79.899 Other long term (current) drug therapy; E78.5 Hyperlipidemia, unspecified; E55.9 Vitamin D deficiency, unspecified
CPT/HCPCS: 36415; 80053; 80061; 82306

== ENCOUNTER 2022-04-04 10:06 | Emergency (ER) | payer MEDICARE, OTHER, SELFPAY ==
[2022-04-04 10:37] VITALS: BP 125/73; PULSE 69; RESP 12; TEMP 36.1; O2SAT 100
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
== END 2022-04-04 11:09 | disposition home or self-care (01) ==
PROVIDERS: Emergency Provider Registered Nurse; PCP Internal Medicine
DX: L03.312 Cellulitis of back [any part except buttock and flank] (principal); S20.462A Insect bite (nonvenomous) of left back wall of thorax, initial encounter; W57.XXXA Bitten or stung by nonvenomous insect and other nonvenomous arthropods, initial encounter; F17.290 Nicotine dependence, other tobacco product, uncomplicated; I10 Essential (primary) hypertension
CPT/HCPCS: 99213; G0463

== ENCOUNTER 2022-07-02 10:03 | Emergency (ER) | payer MEDICARE, OTHER, SELFPAY ==
[2022-07-02 10:25] VITALS: BP 133/74; PULSE 77; RESP 18; TEMP 36.6; O2SAT 99
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
== END 2022-07-02 11:02 | disposition home or self-care (01) ==
PROVIDERS: Emergency Provider Nurse Practitioner; PCP Internal Medicine
DX: J40 Bronchitis, not specified as acute or chronic (principal); J01.90 Acute sinusitis, unspecified; F17.290 Nicotine dependence, other tobacco product, uncomplicated; I10 Essential (primary) hypertension
CPT/HCPCS: 99213; G0463

== ENCOUNTER 2022-08-15 13:51 | Outpatient (CLI) | payer MEDICARE, OTHER, SELFPAY ==
[2022-08-15 15:09] LABS: Alanine Aminotransferase 16 U/L (6-50); Albumin Level 4.6 g/dL (3.5-5.1); Alkaline Phosphatase 78 U/L (38-126); Anion Gap 14 mmol/L (8-16); Aspartate Amino Transferase 21 U/L (17-59); Bilirubin,Total 0.6 mg/dL (0.2-1.3); Blood Urea Nitrogen 15 mg/dL (9-20); Calcium 9.3 mg/dL (8.4-10.2); Carbon Dioxide 27 mmol/L (22-30); Chloride 101 mmol/L (98-107); Cholesterol 215 mg/dL (0-200); Estimated Glomerular Filt Rate > 60; Glucose 111 mg/dL (65-110); HDL Direct 45 mg/dL; Potassium 3.6 mmol/L (3.4-5.0); Sodium 142 mmol/L (137-145); Triglycerides 110 mg/dL (<150)
[2022-08-15 15:20] LABS: LDL Cholesterol Direct 132 mg/dL
[2022-08-15 15:26] LABS: Vitamin D 25 Hydroxy 84.2 ng/mL
[2022-08-15 16:38] LABS: Prostate Specific Antigen 0.9 ng/mL (< OR = 4.0)
[2022-08-18 10:52] LABS: Testosterone Total 328 ng/dL (250-1100)
== END 2022-08-15 13:52 | disposition home or self-care (01) ==
PROVIDERS: PCP Internal Medicine; Visit Provider Internal Medicine
DX: I10 Essential (primary) hypertension (principal); Z79.899 Other long term (current) drug therapy; E55.9 Vitamin D deficiency, unspecified; R68.82 Decreased libido; E78.5 Hyperlipidemia, unspecified; Z12.5 Encounter for screening for malignant neoplasm of prostate
CPT/HCPCS: 36415; 80053; 80061; 82306; 84153; 84403; G0103

== ENCOUNTER 2023-04-04 08:51 | Emergency (ER) | payer MEDICARE, OTHER, SELFPAY ==
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
[2023-04-04 09:01] VITALS: BP 175/84; PULSE 81; RESP 18; TEMP 36.4; O2SAT 100
== END 2023-04-04 09:23 | disposition home or self-care (01) ==
PROVIDERS: Emergency Provider Nurse Practitioner
DX: R19.7 Diarrhea, unspecified (principal); I10 Essential (primary) hypertension
CPT/HCPCS: 99213; G0463

== ENCOUNTER 2023-04-24 14:55 | Outpatient (CLI) | payer MEDICARE, OTHER, SELFPAY ==
--- NOTE | ~2023-04-24 | MR_ITS ---
MRI of the right shoulder Technique: Axial proton-density fat-sat images, coronal proton density fat-sat and T2 fat-sat images, and sagittal T1-weighted and T2 fat-sat images were acquired. Clinical History: Rotator cuff tear Findings: There is moderate to advanced AC joint degenerative change, with small subacromial spur and bony productive change at the distal clavicle. There is reactive marrow edema about the AC joint. Co racoclavicular, coracoacromial, and coracohumeral ligaments are probably intact. Infraspinatus tendon is intact, without partial or full-thickness tear. There is a 0.8 x 2.0 cm area of full-thickness tearing involving the anterior, distal supraspinatus tendon insertion. There is sammi kground moderate to severe supraspinatus tendinosis. Subscapularis tendon is intact, with moderate te ndinosis. Tendon of long head of the biceps is intact, with intra-articular tendinosis. No definite labral tear identified. Inferior glenohumeral ligament is intact. There is fluid passing from the joint space through the rot ator cuff defect into the subacromial/subdeltoid bursa. No degenerative change of the glenohumeral yulia int. No muscle atrophy or edema. Impression: 0.8 x 2.0 cm full-thickness tear involving the anterior to midportion of the distal supraspinatus ten don insertion. Background rotator cuff tendinosis, as above. Moderate to advanced AC joint degenerative change. Reviewed, dictated and finalized at [facility]. Impression: 0.8 x 2.0 cm full-thickness tear involving the anterior to midportion of the di stal supraspinatus tendon insertion. Background rotator cuff tendinosis, as above. Moderate to advanced AC joint degenerative change.
[2023-04-24 16:39] LABS: Toxigenic C. Diff NEGATIVE (NEGATIVE)
== END 2023-04-24 14:56 | disposition home or self-care (01) ==
PROVIDERS: Nurse Practitioner Family; PCP Family Medicine; Visit Provider Orthopaedic Surgery
DX: M75.101 Unspecified rotator cuff tear or rupture of right shoulder, not specified as traumatic (principal); R19.7 Diarrhea, unspecified; M19.011 Primary osteoarthritis, right shoulder
CPT/HCPCS: 73221; 87045; 87177; 87209; 87427; 87493; 89055

== ENCOUNTER 2023-05-28 09:49 | Emergency (ER) | payer MEDICARE, OTHER, SELFPAY ==
[2023-05-28] VITALS (7 sets, daily range): BP systolic 103–144; BP diastolic 67–110; PULSE 82–101; RESP 16–18; TEMP 36.6; O2SAT 98
--- NOTE | ~2023-05-28 | CT_ITS ---
EXAMINATION: CT abdomen pelvis w con INDICATION: Abdominal pain and bloody diarrhea TECHNIQUE: Computed tomographic images of the abdomen and pelvis were obtained after the administrati on of 100 cc of Omnipaque 350 intravenous contrast. The dose-length product (DLP) was 432.65 mGy-cm. Automated exposure control and iterative reconstruction technique were employed. COMPARISON: 08/12/2021 FINDINGS: Minimal dependent atelectasis is present in the lung bases. The heart size is normal. The l iver, spleen, pancreas, gallbladder, and adrenal glands are normal. Cysts of the kidneys measure up t o 10 mm on the right. There is a 2 mm nonobstructing stone of the left kidney lower pole. There is ca lcified atherosclerosis of the aorta and many of the other arteries. No pathologically enlarged abdom inal or pelvic lymph nodes are identified. Colonic diverticulosis is present without evidence of dive rticulitis. The appendix is normal. There is severe lumbar spondylosis. There is a tiny umbilical her tirso containing fat. IMPRESSION: 1. No CT correlate for the patient's symptoms. 2. Nonobstructing left nephrolithiasis. Reviewed, dictated and finalized at location L.
[2023-05-28 10:15] LABS: Basophils Percent Auto 0.2 % (0.2-1.2); Eosinophils Absolute Auto 0.1 K/mm3 (0-0.3); Eosinophils Percent Auto 0.6 % (0-4.4); Hematocrit 40.3 % (42.0-52.0); Hemoglobin 14.1 g/dL (14.0-18.0); Immature Granulocyte Absolute 0.08 K/mm3 (0.00-0.031); Immature Granulocyte Percent A 0.6 % (0-0.5); Lymphocytes Absolute Auto 2.61 K/mm3 (0.9-3.2); Lymphocytes Percent Auto 20.1 % (18.3-44.2); Mean Corpuscular Hemoglobin 33.8 pg (26-34); Mean Corpuscular Volume 96.6 fl (80-100); Mean Platelet Volume 9.8 fl (7.4-10.4); Monocytes Absolute Auto 0.7 K/mm3 (0.1-0.6); Neutrophils Absolute Auto 9.5 K/mm3 (1.3-6.7); Neutrophils Percent Auto 73.5 % (45.5-73.1); Platelet Count Result 332 k/mm3 (150-375); Red Blood Count 4.17 M/mm3 (4.6-6.20); Red Cell Distribution Width 12.8 % (11.5-14.5)
[2023-05-28 10:34] LABS: Alanine Aminotransferase 22 U/L (6-50); Albumin Level 4.3 g/dL (3.5-5.1); Alkaline Phosphatase 63 U/L (38-126); Anion Gap 5 mmol/L (8-16); Aspartate Amino Transferase 22 U/L (17-59); Blood Urea Nitrogen 47 mg/dL (9-20); Calcium 11.5 mg/dL (8.4-10.2); Carbon Dioxide 23 mmol/L (22-30); Chloride 103 mmol/L (98-107); Estimated CRCL calculation 50 ml/min; Estimated Glomerular Filt Rate > 60; Glucose 189 mg/dL (65-110); Lipase 77 U/L (23-300); Potassium 4.9 mmol/L (3.4-5.0); Sodium 131 mmol/L (137-145)
[2023-05-28] MEDS: SODIUM CHLORIDE 0.9% IV 500 ML 999 ML IV CONT (11:00)
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
[2023-05-28] MEDS: ONDANSETRON INJ 4 MG/2 ML VIAL IV PUSH (11:20)
[2023-05-28 11:23] LABS: INR 0.9; Prothrombin Time 12.7 Seconds (11.1-14.7)
[2023-05-28 11:24] LABS: Partial Thromboplastin Time 25.8 SECONDS (22.3-36.8)
[2023-05-28 12:28] LABS: Appearance Urine Clear (Clear); Bilirubin Urine Negative (Negative); Blood Urine Negative (Negative); Color Urine Yellow (Yellow); Glucose Urine UA Negative (Negative); Ketones Urine 1+ mg/dL (Negative); Leukocyte Esterase Ur Negative LEU/UL (Negative); Nitrate Urine Negative (Negative); Protein Urine Negative (Negative); Specific Grav Ur 1.022 (1.001-1.035); Urobilinogen Urine 0.2 mg/dL (<2.0); pH Urine 5.5 (5.0-9.0)
[2023-05-28 12:37] LABS: Add Urine Microscopic? YES
[2023-05-28] MEDS: PANTOPRAZOLE SODIUM IV 40 MG VIAL IV PUSH (14:46)
== END 2023-05-28 15:44 | disposition home or self-care (01) ==
PROVIDERS: Preventive Medicine Aerospace Medicine; Emergency Provider Physician Assistant; PCP Family Medicine
DX: K92.1 Melena (principal); E83.52 Hypercalcemia; F17.210 Nicotine dependence, cigarettes, uncomplicated; I10 Essential (primary) hypertension
CPT/HCPCS: 36415; 74177; 80053; 81001; 83690; 85025; 85610; 85730; 96374; 96375; 99284; C9113; J2405; J7040; Q9967

== ENCOUNTER 2023-05-29 11:39 | Outpatient (CLI) | payer MEDICARE, OTHER, SELFPAY | END 2023-05-29 11:40 | disposition home or self-care (01) | LOC: ANHLAB 11:41 | PROVIDERS: PCP Family Medicine; Visit Provider Physician Assistant | DX: K92.1 Melena (principal) | CPT/HCPCS: 87045; 87269; 87272; 87427; 89055 ==

== ENCOUNTER 2023-05-30 10:45 | Inpatient (IN) | payer MEDICARE, OTHER, SELFPAY ==
[2023-05-30] VITALS (25 sets, daily range): BP systolic 104–146; BP diastolic 63–88; PULSE 78–105; RESP 11–23; TEMP 36.3–36.9; O2SAT 98–100; BMI 25.2
--- NOTE | ~2023-05-30 | XR_ITS ---
EXAMINATION: XR abdomen NG/feed tube insert DATE: 05/30/2023 13:36 INDICATION: Nasogastric tube placement TECHNIQUE: A supine view of the abdomen and lower chest was obtained for evaluation of feeding tube placement. COMPARISON: CT dated 05/28/2023 FINDINGS: Nasogastric tube tip in proximal side port in the body of the stomach. No dilated loops of gas-filled bowel in the visualized abdomen. Lungs are clear with no focal airspace opacities, pulmonary edema, pleural effusion or pneumothorax. Heart size is normal. Mild upper thoracic spondylosis.. IMPRESSION: 1. Nasogastric tube in the stomach. Reviewed, dictated and finalized at location A.
--- NOTE | ~2023-05-30 | XR_ITS ---
Portable chest x-ray Comparison: 11/24/2010 Clinical History: Weakness Findings: Lungs are clear, without focal consolidation or pleural effusion. Cardiomediastinal silho uette is stable. Bones and soft tissues are unremarkable. Impression: Clear lungs. Reviewed, dictated and finalized at location . Impression: Clear lungs.
--- NOTE | 2023-05-30 10:49 | ECG_ITS ---
Measurements Intervals [place] Rate: 84 P: 43 WI: 136 QRS: 17 QRSD: 92 T: 59 QT: 338 QTc: 400 Interpretive Statements SINUS RHYTHM NORMAL ECG NO PREVIOUS ECG AVAILABLE FOR COMPARISON Electronically Signed On 05-30-2023 11:56:15 CDT by Suleman Villanueva D.O.
[2023-05-30 11:13] LABS: Basophils Percent Auto 0.3 % (0.2-1.2); Eosinophils Absolute Auto 0.1 K/mm3 (0-0.3); Eosinophils Percent Auto 1.2 % (0-4.4); Hematocrit 24.4 % (42.0-52.0); Hemoglobin 8.3 g/dL (14.0-18.0); Immature Granulocyte Absolute 0.08 K/mm3 (0.00-0.031); Immature Granulocyte Percent A 0.7 % (0-0.5); Lymphocytes Percent Auto 31.7 % (18.3-44.2); Mean Corpuscular Hemoglobin 33.7 pg (26-34); Mean Corpuscular Volume 99.2 fl (80-100); Mean Platelet Volume 10.2 fl (7.4-10.4); Monocytes Absolute Auto 0.7 K/mm3 (0.1-0.6); Monocytes Percent Auto 6.9 % (2.6-8.5); Neutrophils Absolute Auto 6.3 K/mm3 (1.3-6.7); Neutrophils Percent Auto 59.2 % (45.5-73.1); Platelet Count Result 275 k/mm3 (150-375); Red Blood Count 2.46 M/mm3 (4.6-6.20); Red Cell Distribution Width 12.8 % (11.5-14.5); White Blood Count 10.7 K/mm3 (4.5-10.0)
[2023-05-30 11:21] LABS: Alanine Aminotransferase 22 U/L (6-50); Albumin Level 3.5 g/dL (3.5-5.1); Alkaline Phosphatase 41 U/L (38-126); Anion Gap 3 mmol/L (8-16); Aspartate Amino Transferase 20 U/L (17-59); Bilirubin,Total 0.3 mg/dL (0.2-1.3); Blood Urea Nitrogen 58 mg/dL (9-20); Carbon Dioxide 23 mmol/L (22-30); Chloride 103 mmol/L (98-107); Estimated CRCL calculation 55 ml/min; Estimated Glomerular Filt Rate > 60; Glucose 145 mg/dL (65-110); Potassium 4.7 mmol/L (3.4-5.0); Sodium 129 mmol/L (137-145)
[2023-05-30 11:50] LABS: Appearance Urine Clear (Clear); Bilirubin Urine Negative (Negative); Blood Urine Negative (Negative); Color Urine Yellow (Yellow); Glucose Urine UA Negative (Negative); Ketones Urine Negative (Negative); Leukocyte Esterase Ur Negative LEU/UL (Negative); Nitrate Urine Negative (Negative); Protein Urine Negative (Negative); Urobilinogen Urine 0.2 mg/dL (<2.0)
[2023-05-30 11:58] LABS: Add Urine Microscopic? NO
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
[2023-05-30] MEDS: SODIUM CHLORIDE 0.9% IV 1,000 ML 999 ML IV CONT (13:22)
[2023-05-30] MEDS: PANTOPRAZOLE SODIUM IV 40 MG VIAL IV PUSH (13:22)
[2023-05-30 13:58] LABS: Hematocrit 22.8 % (42.0-52.0); Hemoglobin 7.9 g/dL (14.0-18.0)
[2023-05-30] MEDS: SODIUM CHLORIDE 0.9% IV 250 ML 30 ML IV CONT (14:49)
[2023-05-30] MEDS: TUBING, BLOOD PLUM PUMP TUBING 1 EACH XX (14:49)
[2023-05-30 15:35] LABS: Gastric Negative Control Negative; Gastric Positive Control Positive; Occult Blood Gastric Fluid Negative; pH Gastric Fluid 3 (1-8)
--- NOTE | 2023-05-30 16:23 | PM.IMHP ---
H&P: HPI History of Present Illness Date/Time: 05/30/23 16:23 Chief Complaint: Bloody stool Narrative: This is a 77-year-old male patient who went to his GI specialist yesterday with complaints of diarrhea blood in his stool. The patient stated that he has been having watery stools release 8 months. He states that he has watery stools at least 4 times a day with no blood in it. Improved over the last 3 weeks after starting Questran. Yesterday the patient noticed that he had significant amount of bright dark bloody stools the patient was prompted to go to the emergency room. By time the patient went to the emergency room he had no additional bowel movements. No abdominal pain. His blood count was normal. He was discharged home. The patient's last colonoscopy was approximately weight 1 and half years ago and it offered up the diagnosis of diverticulosis, internal hemorrhoids, and several benign colon polyps. The patient was also having some dysphagia with food catching in midsternal portion the chest. The patient return to the emergency room with complaints of GI bleed. The patient also had increased lightheadedness increase dark stool and dark tarry stools. The patient scheduled for a upper GI and colonoscopy in June. However the patient has become more lightheaded and dizzy. His prompted him to go to the emergency room to be evaluated today. He denies any abdominal pain or tenderness. On 05/28/2023 his H&H is 14.1 and 40.3. Today when he came to the emergency room his H&H was 8.3 and 24.4. His H&H then went down to 7.9 and 22.8. The patient was ordered 2 units packed red blood cells and his H&H is currently 10.0 and 28.7. GI has been consulted. An NG-tube was placed and the patient was started on prep for colonoscopy. The patient will be NPO after midnight. Initially the patient's blood pressure was 115/65. Is currently 138/63. The patient is being admitted to observation status on the date of service of 05/30/2023. Review of Systems Review of Systems: All systems reviewed & are unremarkable except as noted in HPI and below Constitutional: Constitutional: Reports as per HPI and Reports no additional constitutional complaints Eyes: Eyes: Reports as per HPI and Reports no additional eye complaints ENT: Reports system reviewed and no additional complaints, except as documented and Reports Normal hearing present Cardiovascular: Cardiovascular: Reports no additional cardiovascular complaints Respiratory: Respiratory: Reports no additional respiratory complaints and Reports no additional respiratory complaints Gastrointestinal: Gastrointestinal: Reports as per HPI and Reports no additional gastrointestinal complaints Musculoskeletal: Musculoskeletal: Reports no additional musculoskeletal complaints Integumentary/Breasts: Skin/Breast: Reports system reviewed and no additional complaints, except as docu and Reports as per HPI Neurologic: Reports system reviewed and no additional complaints, except as documented, Reports as per HPI and Reports Normal hearing present Psychiatric: Psychiatric: Reports no additional psychiatric complaints and Reports as per HPI Endocrine: Endocrine: Reports no additional endocrine complaints Hematologic/Lymphatic: Hematologic/Lymphatic: Reports no additional hematologic/lymphatic complaints Allergic/Immunologic: Allergic/Immunologic: Reports no additional allergic/immunologic complaints [facility] Past Medical History Medical History (Updated 05/30/23 @ 23:48 by Guillermina James NP) Alcoholism Essential hypertension History of colon polyps Nephrolithiasis Right rotator cuff tendinitis Right shoulder pain Rotator cuff tear, right Shingles Smoker Subacromial bursitis of right shoulder joint Tendinitis of upper biceps tendon of right shoulder Surgical History Surgical History (Updated 05/30/23 @ 23:26 by Guillermina James NP) H/O colonoscopy H/O colonoscopy with polypectomy H/O garcia
[2023-05-30] MEDS: PEG (High)/E-LYTE SOLN 4,000 ML BTL 4000 ML PO (16:48)
[2023-05-30 18:53] LABS: Glucose Point of Care 154 mg/dl (65-105)
[2023-05-30] MEDS: PHENOL/SOD PHENO SPRAY CHERRY (*BKC) 1 SPRAY MUCOUS MEM (19:52)
[2023-05-30] MEDS: NICOTINE (*PBKC) 7 MG PATCH 1 PATCH TRANSDERM (19:52)
--- NOTE | 2023-05-30 20:30 | PC.NURSE ---
INFORMED BY INSULATION MECHANIC THAT THERE WERE NO BLOOD VITALS DOCUMENTED ON THIS PATIENT SINCE 1904. PREVIOUS INSULATION MECHANIC DID NOT INFORM ONCOMING NIGHT INSULATION MECHANIC ABOUT WHEN VITALS WERE DUE NEXT FOR THIS PATIENT. PT IS ON SECOND UNIT OF BLOOD WITH NO COMPLAINTS OF REACTION AND CURRENT VITALS ARE STABLE.
[2023-05-30] MEDS: SODIUM CHLORIDE 0.9% IV 1,000 ML 125 ML IV CONT (21:39)
[2023-05-30 22:41] LABS: Hematocrit 28.7 % (42.0-52.0)
[2023-05-31] VITALS (16 sets, daily range): BP systolic 128–156; BP diastolic 58–76; PULSE 70–84; RESP 13–20; TEMP 36.4–37; O2SAT 97–99
[2023-05-31 00:34] LABS: Glucose Point of Care 111 mg/dl (65-105)
[2023-05-31 05:33] LABS: Basophils Percent Auto 0.4 % (0.2-1.2); Eosinophils Absolute Auto 0.2 K/mm3 (0-0.3); Eosinophils Percent Auto 2.1 % (0-4.4); Hemoglobin 8.8 g/dL (14.0-18.0); Immature Granulocyte Absolute 0.05 K/mm3 (0.00-0.031); Immature Granulocyte Percent A 0.5 % (0-0.5); Lymphocytes Absolute Auto 2.81 K/mm3 (0.9-3.2); Lymphocytes Percent Auto 30.2 % (18.3-44.2); Mean Corpuscular HGB Conc 33.8 g/dl (32-36); Mean Corpuscular Hemoglobin 31.4 pg (26-34); Mean Corpuscular Volume 92.9 fl (80-100); Monocytes Absolute Auto 0.7 K/mm3 (0.1-0.6); Monocytes Percent Auto 7.7 % (2.6-8.5); Neutrophils Absolute Auto 5.5 K/mm3 (1.3-6.7); Neutrophils Percent Auto 59.1 % (45.5-73.1); Platelet Count Result 193 k/mm3 (150-375); Red Cell Distribution Width 15.6 % (11.5-14.5); White Blood Count 9.3 K/mm3 (4.5-10.0)
[2023-05-31 05:37] LABS: Glucose Point of Care 100 mg/dl (65-105)
[2023-05-31 06:03] LABS: Alanine Aminotransferase 22 U/L (6-50); Albumin Level 3.2 g/dL (3.5-5.1); Alkaline Phosphatase 40 U/L (38-126); Anion Gap 5 mmol/L (8-16); Aspartate Amino Transferase 24 U/L (17-59); Bilirubin,Total 0.6 mg/dL (0.2-1.3); Blood Urea Nitrogen 35 mg/dL (9-20); Calcium 8.4 mg/dL (8.4-10.2); Carbon Dioxide 23 mmol/L (22-30); Chloride 109 mmol/L (98-107); Estimated CRCL calculation 55 ml/min; Estimated Glomerular Filt Rate > 60; Glucose 99 mg/dL (65-110); Magnesium 1.5 mg/dL (1.6-2.3); Potassium 4.3 mmol/L (3.4-5.0); Sodium 137 mmol/L (137-145)
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
--- NOTE | 2023-05-31 07:32 | PM.IMPN ---
Progress Note: A&P Assessment and Plan (1) Acute lower GI bleeding: Code(s): K92.2 - Gastrointestinal hemorrhage, unspecified Status: Acute Assessment and Plan: -H&H every 6 hours -initial Hgb was 7.9. He received 2 units pRBCs and hgb improved to 10.0. Now 8.8 this am. -GI has been consulted for colonoscopy and EGD -GI prep started last night. Patient with NG tube. -NPO. Will trial clears after procedure. -Protonix 40 mg increased to BID -Daily drinker, unsure of varices, may need to add octreotide gtt (2) Anemia: Code(s): D64.9 - Anemia, unspecified Status: Acute Assessment and Plan: The patient was given 2 units of packed red blood cells. H&H is every 6 hours. The patient was noted to have bloody watery stools. Hold any NSAIDs. (3) Essential hypertension: Code(s): I10 - Essential (primary) hypertension Status: Acute Assessment and Plan: Patient's blood pressure was low initially and is normalized since then. P.r.n. hydralazine with parameters. Irbesartan is on hold at this time (4) Enlarged prostate without lower urinary tract symptoms (luts): Code(s): N40.0 - Benign prostatic hyperplasia without lower urinary tract symptoms Status: Acute Assessment and Plan: Patient has no difficulty at this time. He does not appear to be on any medications for this. (5) Alcoholism: Code(s): F10.20 - Alcohol dependence, uncomplicated Status: Acute Assessment and Plan: -Continue with CIWA protocol -daily [place] drinker -denies withdrawal from ETOH in the past Subjective Date/time seen: 05/31/23 07:32 Interval history: HPI obtained from chart This is a 77-year-old male patient who went to his GI specialist yesterday with complaints of diarrhea blood in his stool.? The patient stated that he has been having watery stools release 8 months.? He states that he has watery stools at least 4 times a day with no blood in it.? Improved over the last 3 weeks after starting Questran.? Yesterday the patient noticed that he had significant amount of bright dark bloody stools the patient was prompted to go to the emergency room.? By time the patient went to the emergency room he had no additional bowel movements.? No abdominal pain.? His blood count was normal.? He was discharged home.? The patient's last colonoscopy was approximately weight 1 and half years ago and it offered up the diagnosis of diverticulosis, internal hemorrhoids, and several benign colon polyps.? The patient was also having some dysphagia with food catching in midsternal portion the chest. The patient return to the emergency room with complaints of GI bleed.? The patient also had increased lightheadedness increase dark stool and dark tarry stools.? The patient scheduled for a upper GI and colonoscopy in June.? However the patient has become more lightheaded and dizzy.? His prompted him to go to the emergency room to be evaluated today.? He denies any abdominal pain or tenderness.? On 05/28/2023 his H&H is 14.1 and 40.3.? Today when he came to the emergency room his H&H was 8.3 and 24.4.? His H&H then went down to 7.9 and 22.8.? The patient was ordered 2 units packed red blood cells and his H&H is currently 10.0 and 28.7.? GI has been consulted.? An NG-tube was placed and the patient was started on prep for colonoscopy.? The patient will be NPO after midnight.? Initially the patient's blood pressure was 115/65.? Is currently 138/63.? The patient is being admitted to observation status on the date of service of 05/30/2023. Interval history: 05/31: Patient was seen this morning his at bedside. No acute events overnight he does not appear in any acute distress. He states that he is been receiving his GoLYTELY prep through his NG and has been NPO in anticipation of his EGD and colonoscopy today. Really does not have any complaints other than the discomfort of the NG tube and dark ta
--- NOTE | 2023-05-31 09:45 | PC.NURSE ---
Spoke with Fabi in endoscopy to review patient condition, NPO status, and BM status.
[2023-05-31] MEDS: MAGNESIUM SULF 2 GM/WATER 50ML 2 GM/50 ML BAG IVPB (10:07)
[2023-05-31] MEDS: SODIUM CHLORIDE 0.9% IV 1,000 ML 125 ML IV CONT (10:07)
[2023-05-31] MEDS: THIAMINE HCL 200 MG/2 ML VIAL 100 MG IV PUSH (10:08)
[2023-05-31] MEDS: PANTOPRAZOLE SODIUM IV 40 MG VIAL IV PUSH ×2 (10:08→20:35)
[2023-05-31] MEDS: FOLIC ACID 1 MG/0.2 ML INJ IV PUSH (10:08)
[2023-05-31 11:44] LABS: Hematocrit 23.3 % (42.0-52.0)
[2023-05-31 12:18] LABS: Glucose Point of Care 116 mg/dl (65-105)
[2023-05-31] MEDS: LACTATED RINGERS 1,000 ML 150 ML IV CONT (13:07)
--- NOTE | 2023-05-31 13:59 | WPDANESEPPF ---
Anes - Initial Pre Proc Eval Procedure: Operation Date: 05/31/23 14:00 Proposed Procedures p Esophagogastroduodenoscopy & Colonoscopy - Augie Hedrick MD Date/Time: 05/31/23 13:59 Surgeon: Selma Garcia DO Pre Op Diagnosis: GI BLEED,ANEMIA Patient Data Age: 77 Gender: M Height: 1.73 m Weight: 75.3 kg Last Vital Signs Temp 97.6 F 05/31/23 13:09 Pulse 77 05/31/23 13:09 Resp 18 05/31/23 13:09 BP 141/69 H 05/31/23 13:09 Pulse Ox 99 05/31/23 13:09 O2 Del Method Room Air 05/31/23 13:09 Allergies Allergy/AdvReac Type Severity Reaction Status Date / Time No Known Allergies Allergy Mild Verified 05/31/23 13:08 Home Medications Medication Instructions Recorded Confirmed Type diclofenac sodium 75 mg 75 mg PO BID PRN pain #60 tabs 04/23/23 05/30/23 Rx tablet,delayed release irbesartan 300 mg tablet 300 mg PO DAILY #90 tabs 04/29/23 05/30/23 Rx cholestyramine-aspartame 4 gram 4 g PO EVERY OTHER DAY 05/30/23 05/30/23 History oral powder for susp in a packet (Cholestyramine Light) diphenhydramine HCl 25 mg tablet 25 mg PO BID PRN allergy symptoms 05/30/23 05/30/23 History (Benadryl Allergy) hydrocodone 5 mg-acetaminophen 325 1 tablet PO PRN PRN pain 05/30/23 05/30/23 History mg tablet valacyclovir 500 mg tablet 500 mg PO DAILY 05/30/23 05/30/23 History Laboratory Tests 05/30/23 05/30/23 05/30/23 11:05 13:39 14:57 WBC RBC Hgb 7.9 L g/dL (14.0-18.0) Hct 22.8 L % (42.0-52.0) MCV MCH MCHC RDW Plt Count MPV Immature Gran % (Auto) Neut % (Auto) Lymph % (Auto) Glynn % (Auto) Eos % (Auto) Baso % (Auto) Lymph # (Auto) Glynn # (Auto) Eos # (Auto) Baso # (Auto) Abs Immat Gran (auto) Absolute Neuts (auto) Absolute Nucleated RBC Nucleated RBC % Sodium Potassium Chloride Carbon Dioxide Anion Gap BUN Creatinine Estim Creat Clear Calc Estimated GFR Glucose POC Capillary Glucose Lactic Acid Calcium Magnesium Total Bilirubin AST ALT Alkaline Phosphatase Total Protein Albumin TSH (Reflex) Gastric Fluid pH 3 (1-8) Gastric Occult Blood Negative Blood Type O Positive Antibody Screen Negative Crossmatch See Detail 05/30/23 05/30/23 05/31/23 18:46 22:37 00:14 WBC RBC Hgb 10.0 L g/dL (14.0-18.0) Hct 28.7 L % (42.0-52.0) MCV MCH MCHC RDW Plt Count MPV Immature Gran % (Auto) Neut % (Auto) Lymph % (Auto) Glynn % (Auto) Eos % (Auto) Baso % (Auto) Lymph # (Auto) Glynn # (Auto) Eos # (Auto) Baso # (Auto) Abs Immat Gran (auto) Absolute Neuts (auto) Absolute Nucleated RBC Nucleated RBC % Sodium Potassium Chloride Carbon Dioxide Anion Gap BUN Creatinine Estim Creat Clear Calc Estimated GFR Glucose POC Capillary Glucose 154 H mg/dl 111 H mg/dl (65-105) (65-105) Lactic Acid Calcium Magnesium Total Bilirubin AST ALT Alkaline Phosphatase Total Protein Albumin
--- NOTE | 2023-05-31 14:22 | SUR.OPER ---
NG tube removed without difficulty [address] Hedrick
[2023-05-31] MEDS: EPINEPHrine INJ 1 MG/10 ML SYRINGE XX (15:05)
[2023-05-31 16:59] LABS: Basophils Percent Auto 0.2 % (0.2-1.2); Eosinophils Absolute Auto 0.2 K/mm3 (0-0.3); Eosinophils Percent Auto 1.8 % (0-4.4); Hematocrit 23.8 % (42.0-52.0); Immature Granulocyte Absolute 0.06 K/mm3 (0.00-0.031); Immature Granulocyte Percent A 0.7 % (0-0.5); Lymphocytes Absolute Auto 2.48 K/mm3 (0.9-3.2); Lymphocytes Percent Auto 27.3 % (18.3-44.2); Mean Corpuscular HGB Conc 33.6 g/dl (32-36); Mean Corpuscular Hemoglobin 31.9 pg (26-34); Mean Corpuscular Volume 94.8 fl (80-100); Mean Platelet Volume 10.3 fl (7.4-10.4); Monocytes Absolute Auto 0.6 K/mm3 (0.1-0.6); Neutrophils Absolute Auto 5.7 K/mm3 (1.3-6.7); Platelet Count Result 204 k/mm3 (150-375); Red Blood Count 2.51 M/mm3 (4.6-6.20); Red Cell Distribution Width 15.9 % (11.5-14.5); White Blood Count 9.1 K/mm3 (4.5-10.0)
[2023-05-31 18:28] LABS: Glucose Point of Care 136 mg/dl (65-105)
[2023-05-31] MEDS: SUCRALFATE 1 GM TABLET PO (20:35)
[2023-05-31 22:06] LABS: Basophils Percent Auto 0.2 % (0.2-1.2); Eosinophils Absolute Auto 0.1 K/mm3 (0-0.3); Eosinophils Percent Auto 1.4 % (0-4.4); Immature Granulocyte Absolute 0.07 K/mm3 (0.00-0.031); Immature Granulocyte Percent A 0.8 % (0-0.5); Lymphocytes Absolute Auto 2.38 K/mm3 (0.9-3.2); Lymphocytes Percent Auto 27.2 % (18.3-44.2); Mean Corpuscular HGB Conc 34.8 g/dl (32-36); Mean Corpuscular Hemoglobin 32.5 pg (26-34); Mean Corpuscular Volume 93.5 fl (80-100); Mean Platelet Volume 9.8 fl (7.4-10.4); Monocytes Absolute Auto 0.6 K/mm3 (0.1-0.6); Monocytes Percent Auto 6.5 % (2.6-8.5); Neutrophils Absolute Auto 5.6 K/mm3 (1.3-6.7); Neutrophils Percent Auto 63.9 % (45.5-73.1); Platelet Count Result 169 k/mm3 (150-375); Red Cell Distribution Width 15.6 % (11.5-14.5); White Blood Count 8.8 K/mm3 (4.5-10.0)
[2023-05-31 22:47] LABS: Hematocrit 18.7 % (42.0-52.0); Hemoglobin 6.5 g/dL (14.0-18.0)
[2023-06-01] VITALS (19 sets, daily range): BP systolic 93–138; BP diastolic 50–71; PULSE 66–78; RESP 16–18; TEMP 35.9–36.9; O2SAT 98–100
[2023-06-01 00:14] LABS: Glucose Point of Care 103 mg/dl (65-105)
[2023-06-01 05:49] LABS: Glucose Point of Care 103 mg/dl (65-105)
[2023-06-01 06:38] LABS: Basophils Percent Auto 0.3 % (0.2-1.2); Eosinophils Absolute Auto 0.2 K/mm3 (0-0.3); Eosinophils Percent Auto 2.8 % (0-4.4); Hemoglobin 7.1 g/dL (14.0-18.0); Immature Granulocyte Absolute 0.06 K/mm3 (0.00-0.031); Immature Granulocyte Percent A 0.9 % (0-0.5); Lymphocytes Absolute Auto 2.09 K/mm3 (0.9-3.2); Lymphocytes Percent Auto 30.5 % (18.3-44.2); Mean Corpuscular HGB Conc 34.6 g/dl (32-36); Mean Corpuscular Hemoglobin 32.7 pg (26-34); Mean Corpuscular Volume 94.5 fl (80-100); Mean Platelet Volume 9.5 fl (7.4-10.4); Monocytes Absolute Auto 0.6 K/mm3 (0.1-0.6); Monocytes Percent Auto 8.2 % (2.6-8.5); Neutrophils Absolute Auto 3.9 K/mm3 (1.3-6.7); Neutrophils Percent Auto 57.3 % (45.5-73.1); Platelet Count Result 154 k/mm3 (150-375); Red Blood Count 2.17 M/mm3 (4.6-6.20); Red Cell Distribution Width 14.7 % (11.5-14.5); White Blood Count 6.9 K/mm3 (4.5-10.0)
[2023-06-01 06:42] LABS: Hematocrit 20.5 % (42.0-52.0)
[2023-06-01 07:02] LABS: Alanine Aminotransferase 21 U/L (6-50); Albumin Level 2.6 g/dL (3.5-5.1); Alkaline Phosphatase 37 U/L (38-126); Anion Gap 1 mmol/L (8-16); Aspartate Amino Transferase 22 U/L (17-59); Bilirubin,Total 0.4 mg/dL (0.2-1.3); Blood Urea Nitrogen 23 mg/dL (9-20); Carbon Dioxide 24 mmol/L (22-30); Chloride 109 mmol/L (98-107); Estimated CRCL calculation 60 ml/min; Estimated Glomerular Filt Rate > 60; Glucose 95 mg/dL (65-110); Magnesium 1.8 mg/dL (1.6-2.3); Potassium 3.6 mmol/L (3.4-5.0); Sodium 134 mmol/L (137-145)
[2023-06-01] MEDS: SUCRALFATE 1 GM TABLET PO ×4 (07:52→20:22)
--- NOTE | 2023-06-01 08:06 | PM.IMPN ---
Progress Note: A&P Assessment and Plan (1) Acute lower GI bleeding: Code(s): K92.2 - Gastrointestinal hemorrhage, unspecified Status: Acute Assessment and Plan: -H&H every 6 hours -Overnight Hgb dropped to 6.5 and he received 1 unit pRBC. This am Hgb is 7.0 and he is hypotensive. Will transfuse another 1 unit pRBC now. -GI has been consulted for EGD-found 7mm duodenal ulcer which was clipped, biopsy taken. -clear liquids -Protonix 40 mg increased to BID (2) Anemia: Code(s): D64.9 - Anemia, unspecified Status: Acute Assessment and Plan: The patient was given 2 units of packed red blood cells. H&H is every 6 hours. The patient was noted to have bloody watery stools. Hold any NSAIDs. (3) Essential hypertension: Code(s): I10 - Essential (primary) hypertension Status: Acute Assessment and Plan: Patient's blood pressure was low initially and is normalized since then. P.r.n. hydralazine with parameters. Irbesartan is on hold at this time (4) Enlarged prostate without lower urinary tract symptoms (luts): Code(s): N40.0 - Benign prostatic hyperplasia without lower urinary tract symptoms Status: Acute Assessment and Plan: Patient has no difficulty at this time. He does not appear to be on any medications for this. (5) Alcoholism: Code(s): F10.20 - Alcohol dependence, uncomplicated Status: Acute Assessment and Plan: -Continue with CIWA protocol -daily [place] drinker -denies withdrawal from ETOH in the past -Can do Q shift neuro checks Subjective Date/time seen: 06/01/23 08:06 Interval history: HPI obtained from chart This is a 77-year-old male patient who went to his GI specialist yesterday with complaints of diarrhea blood in his stool.? The patient stated that he has been having watery stools release 8 months.? He states that he has watery stools at least 4 times a day with no blood in it.? Improved over the last 3 weeks after starting Questran.? Yesterday the patient noticed that he had significant amount of bright dark bloody stools the patient was prompted to go to the emergency room.? By time the patient went to the emergency room he had no additional bowel movements.? No abdominal pain.? His blood count was normal.? He was discharged home.? The patient's last colonoscopy was approximately weight 1 and half years ago and it offered up the diagnosis of diverticulosis, internal hemorrhoids, and several benign colon polyps.? The patient was also having some dysphagia with food catching in midsternal portion the chest. The patient return to the emergency room with complaints of GI bleed.? The patient also had increased lightheadedness increase dark stool and dark tarry stools.? The patient scheduled for a upper GI and colonoscopy in June.? However the patient has become more lightheaded and dizzy.? His prompted him to go to the emergency room to be evaluated today.? He denies any abdominal pain or tenderness.? On 05/28/2023 his H&H is 14.1 and 40.3.? Today when he came to the emergency room his H&H was 8.3 and 24.4.? His H&H then went down to 7.9 and 22.8.? The patient was ordered 2 units packed red blood cells and his H&H is currently 10.0 and 28.7.? GI has been consulted.? An NG-tube was placed and the patient was started on prep for colonoscopy.? The patient will be NPO after midnight.? Initially the patient's blood pressure was 115/65.? Is currently 138/63.? The patient is being admitted to observation status on the date of service of 05/30/2023. Interval history: 05/31: Patient was seen this morning his at bedside. No acute events overnight he does not appear in any acute distress. He states that he is been receiving his GoLYTELY prep through his NG and has been NPO in anticipation of his EGD and colonoscopy today. Really does not have any complaints other than the discomfort of the NG tube and dark tarry stools. He denies
--- NOTE | 2023-06-01 08:19 | WPDANESPN ---
Anes - Prog Note Post-Op Date/Time: 06/01/23 08:19 Cardiovascular status: normal Respiratory status: normal Airway patency: baseline Mental status: baseline Post-Op hydration status: normal Vital Signs: Last Vital Signs Temp 36.4 C 06/01/23 05:31 Pulse 67 06/01/23 05:31 Resp 18 06/01/23 05:31 BP 100/54 L 06/01/23 05:31 Pulse Ox 98 06/01/23 05:31 O2 Del Method Room Air 05/31/23 20:00 Pain Score (VAS): 210 I/O: Intake & Output 05/31/23 06/01/23 06/01/23 23:59 07:59 15:59 Intake Total 580 590 Output Total 650 Balance 580 -60 Laboratory Tests 06/01/23 06:29 06/01/23 06:29 05/30/23 05/31/23 05/31/23 11:05 11:27 11:31 WBC 9.1 RBC 2.51 L Hgb 8.0 L 8.0 L Hct 23.8 L 23.3 L MCV 94.8 MCH 31.9 MCHC 33.6 RDW 15.9 H Plt Count 204 MPV 10.3 Immature Gran % (Auto) 0.7 H Neut % (Auto) 63.0 Lymph % (Auto) 27.3 Moca % (Auto) 7.0 Eos % (Auto) 1.8 Baso % (Auto) 0.2 Lymph # (Auto) 2.48 Moca # (Auto) 0.6 Eos # (Auto) 0.2 Baso # (Auto) 0.0 Abs Immat Gran (auto) 0.06 H Absolute Neuts (auto) 5.7 Absolute Nucleated RBC 0.0 Nucleated RBC % 0.0 Sodium Potassium Chloride Carbon Dioxide Anion Gap BUN Creatinine Estim Creat Clear Calc Estimated GFR Glucose POC Capillary Glucose Calcium Magnesium Total Bilirubin AST ALT Alkaline Phosphatase Total Protein Albumin Blood Type O Positive Antibody Screen Negative Crossmatch See Detail 05/31/23 05/31/23 05/31/23 12:12 17:33 21:51 WBC 8.8 RBC 2.00 L Hgb 6.5 L* Hct 18.7 L* MCV 93.5 MCH 32.5 MCHC 34.8 RDW 15.6 H Plt Count 169 MPV 9.8 Immature Gran % (Auto) 0.8 H Neut % (Auto) 63.9 Lymph % (Auto) 27.2 Moca % (Auto) 6.5 Eos % (Auto) 1.4 Baso % (Auto) 0.2 Lymph # (Auto) 2.38 Moca # (Auto) 0.6 Eos # (Auto) 0.1 Baso # (Auto) 0.0 Abs Immat Gran (auto) 0.07 H Absolute Neuts (auto) 5.6 Absolute Nucleated RBC 0.0 Nucleated RBC % 0.0 Sodium Potassium Chloride Carbon Dioxide Anion Gap BUN Creatinine Estim Creat Clear Calc Estimated GFR Glucose POC Capillary Glucose 116 H 136 H Calcium Magnesium Total Bilirubin AST ALT Alkaline Phosphatase Total Protein Albumin Blood Type Antibody Screen Crossmatch 06/01/23 06/01/23 06/01/23 00:08 05:33 06:29 WBC 6.9 RBC 2.17 L Hgb 7.1 L Hct 20.5 L* MCV 94.5 MCH 32.7 MCHC 34.6 RDW 14.7 H Plt Count 154 MPV 9.5 Immature Gran % (Auto) 0.9 H Neut % (Auto) 57.3 Lymph % (Auto) 30.5 Moca % (Auto) 8.2 Eos % (Auto) 2.8 Baso % (Auto) 0.3 Lymph # (Auto) 2.09 Moca # (Auto) 0.6 Eos # (Auto) 0.2 Baso # (Auto) 0.0 Abs Immat Gran (auto) 0.06 H Absolute Neuts (auto) 3.9 Absolute Nucleated RBC 0.0 Nucleated RBC % 0.0 Sodium 134 L Potassium 3.6 Chloride 109 H Carbon Dioxide 24 Anion Gap 1 L BUN 23 H D Creatinine 0.90 Estim Creat Clear Calc 60 Estimated GFR > 60 Glucose 95 POC Capillary Glucose 103 103 Calcium 7.0 L Magnesium 1.8 Total Bilirubin 0.4 AST 22 ALT 21 Alkaline Phosphatase 37 L Total Protein 5.0 L Albumin 2.6 L Blood Type Antibody Screen Crossmatch Post-procedural complaints: none Patient Feedback: Patient satisfied with anesthetic care.
[2023-06-01] MEDS: THIAMINE HCL 200 MG/2 ML VIAL 100 MG IV PUSH (08:31)
[2023-06-01] MEDS: PANTOPRAZOLE SODIUM IV 40 MG VIAL IV PUSH ×2 (08:31→17:33)
--- NOTE | 2023-06-01 08:43 | PC.NURSE ---
called for missing folic acid, cannot pull from pyxis, will give when received
[2023-06-01] MEDS: FOLIC ACID 1 MG/0.2 ML INJ IV PUSH (08:56)
[2023-06-01 12:07] LABS: Glucose Point of Care 105 mg/dl (65-105)
--- NOTE | 2023-06-01 13:58 | PC.NURSE ---
called Dr. Brionna Epps to let him know patient's family has questions, provider to come see shortly
[2023-06-01] MEDS: SODIUM CHLORIDE 0.9% IV 1,000 ML 125 ML IV CONT ×2 (14:42→23:54)
--- NOTE | 2023-06-01 15:01 | WPDGIPROGNO ---
Progress Note: A&P Assessment and Plan (1) GIB (gastrointestinal bleeding): Code(s): K92.2 - Gastrointestinal hemorrhage, unspecified Status: Acute Assessment and Plan: egd yesterday with intervention noted that BUN is trending down and he is hemodynamically stable but required 2 more units of pbrc no more obvious overt gib (denies any melena since scope) but will repeat h/h and then reassess if needs second look EGD liquid diet for now iv protonix twice daily (2) Duodenal ulcer: Code(s): K26.9 - Duodenal ulcer, unspecified as acute or chronic, without hemorrhage or perforation Status: Acute Assessment and Plan: source of UGIB (3) Acute blood loss anemia: Code(s): D62 - Acute posthemorrhagic anemia Status: Acute Assessment and Plan: s/p blood transfusion continue to trend bun has improved- probably bleeding stopped? Subjective Date/time seen: 06/01/23 15:01 Interval history: egd yesterday found duodenal ulcer with visible vessel treated with epi, gold probe and clip x1 he has not had BM since EGD and he is not feeling lightheaded but required 2 more units prbc (awaiting repeat h/h after 2nd unit)- denies abdominal pain, nausea and overall doing ok family member at bedside Review of Systems Review of Systems: All systems reviewed & are unremarkable except as noted in HPI and below Exam Const: General: comfortable and no acute distress HENMT: Face/Nose/Sinus: Normal nares present Eyes: General: appearance normal, both eyes and all related structures Neck: Neck: no JVD Resp: Auscultation: clear to auscultation bilaterally Cardio: Rate: regular rate Rhythm: regular rhythm GI: Inspection: non-distended GI Palp: Yes Soft to palpation and No Guarding due to palpation present (GI) Skin: General skin exam: no rashes or lesions noted Neuro: Speech: normal speech Motor exam (neuro): 5/5 motor strength present throughout Extrem: General: normal to inspection Psych: Mental Status: mental status grossly normal Objective Data Vital Signs Vital Signs: Vital Signs - 24 hr 05/31/23 15:05 05/31/23 15:32 05/31/23 15:47 Temperature 97.9 F 97.8 F Pulse Rate 78 72 70 Respiratory Rate 17 16 16 Blood Pressure 156/76 H 144/74 H 138/74 Pulse Oximetry 97 98 98 Oxygen Delivery Room Air 05/31/23 16:17 05/31/23 16:41 05/31/23 20:00 Temperature 98 F Pulse Rate 70 74 Respiratory Rate 16 Blood Pressure 140/74 Pulse Oximetry 99 Oxygen Delivery Room Air 05/31/23 20:00 05/31/23 21:52 06/01/23 00:00 Temperature 98.4 F Pulse Rate 78 Respiratory Rate 20 Blood Pressure 134/71 134/71 134/71 Pulse Oximetry 98 Oxygen Delivery 06/01/23 02:29 06/01/23 02:51 05/31/23 20:00 Temperature 98.5 F 98.1 F Pulse Rate 75 72 82 Respiratory Rate 16 16 Blood Pressure 118/60 115/50 L Pulse Oximetry 100 98 Oxygen Delivery 06/01/23 00:00 06/01/23 03:50 06/01/23 04:00 Temperature 97.7 F Pulse Rate 78 76 Respiratory Rate 16 Blood Pressure 100/62 100/62 Pulse Oximetry 98 Oxygen Delivery 06/01/23 04:46 06/01/23 04:50 06/01/23 05:31 Temperature 97.6 F 96.6 F L 97.6 F Pulse Rate 70 70 67 Respiratory Rate 16 16 18 Blood Pressure 93/55 L 93/55 L 100/54 L Pulse Oximetry 99 99 98 Oxygen Delivery 06/01/23 04:00 06/01/23 11:30 06/01/23 11:45 Temperature 98.0 F 97.8 F Pulse Rate 71 66 68 Respiratory Rate 16 16 Blood Pressure 125/66 132/71 Pulse Oximetry 100 100 Oxygen Delivery 06/01/23 08:00 06/01/23 08:35 06/01/23 12:46 Temperature 97.8 F Pulse Rate 69 69 Respiratory Rate 16 Blood Pressure 125/67 Pulse Oximetry 99 Oxygen Delivery Room Air 06/01/23 12:00 06/01/23 13:46 06/01/23 13:15 Temperature 97.9 F 97.9 F Pulse Rate 68 70 70 Respiratory Rate 16 16 Blood Pressure 138/68 138/68 Pulse Oximetry 100 100 Oxygen Delivery 06/01/23 14:30 Temperature 97.9 F Pulse Ra
[2023-06-01 15:42] LABS: Hematocrit 25.9 % (42.0-52.0); Hemoglobin 8.9 g/dL (14.0-18.0); Mean Corpuscular HGB Conc 34.4 g/dl (32-36); Mean Corpuscular Hemoglobin 31.7 pg (26-34); Mean Corpuscular Volume 92.2 fl (80-100); Mean Platelet Volume 9.8 fl (7.4-10.4); Platelet Count Result 165 k/mm3 (150-375); Red Blood Count 2.81 M/mm3 (4.6-6.20); Red Cell Distribution Width 15.1 % (11.5-14.5); White Blood Count 7.7 K/mm3 (4.5-10.0)
[2023-06-01 18:36] LABS: Glucose Point of Care 91 mg/dl (65-105)
[2023-06-02] VITALS: PULSE 64
[2023-06-02 04:00] VITALS: PULSE 60
[2023-06-02 04:59] VITALS: BP 111/55; PULSE 65; RESP 16; TEMP 36.2; O2SAT 99
[2023-06-02 05:21] LABS: Basophils Percent Auto 0.4 % (0.2-1.2); Eosinophils Absolute Auto 0.2 K/mm3 (0-0.3); Eosinophils Percent Auto 2.9 % (0-4.4); Hemoglobin 8.1 g/dL (14.0-18.0); Immature Granulocyte Absolute 0.05 K/mm3 (0.00-0.031); Immature Granulocyte Percent A 0.7 % (0-0.5); Lymphocytes Absolute Auto 2.01 K/mm3 (0.9-3.2); Lymphocytes Percent Auto 27.7 % (18.3-44.2); Mean Corpuscular HGB Conc 33.8 g/dl (32-36); Mean Corpuscular Hemoglobin 31.2 pg (26-34); Mean Corpuscular Volume 92.3 fl (80-100); Mean Platelet Volume 9.8 fl (7.4-10.4); Monocytes Absolute Auto 0.6 K/mm3 (0.1-0.6); Monocytes Percent Auto 7.7 % (2.6-8.5); Neutrophils Absolute Auto 4.4 K/mm3 (1.3-6.7); Neutrophils Percent Auto 60.6 % (45.5-73.1); Platelet Count Result 169 k/mm3 (150-375); Red Cell Distribution Width 15.4 % (11.5-14.5); White Blood Count 7.3 K/mm3 (4.5-10.0)
[2023-06-02 05:38] LABS: Anion Gap 2 mmol/L (8-16); Blood Urea Nitrogen 12 mg/dL (9-20); Calcium 7.2 mg/dL (8.4-10.2); Carbon Dioxide 23 mmol/L (22-30); Chloride 111 mmol/L (98-107); Estimated CRCL calculation 60 ml/min; Estimated Glomerular Filt Rate > 60; Glucose 89 mg/dL (65-110); Potassium 3.8 mmol/L (3.4-5.0); Sodium 136 mmol/L (137-145)
[2023-06-02] MEDS: SUCRALFATE 1 GM TABLET PO ×2 (06:41→11:47)
[2023-06-02 08:00] VITALS: PULSE 68
--- NOTE | 2023-06-02 08:38 | PM.IMPN ---
Progress Note: A&P Assessment and Plan (1) Acute lower GI bleeding: Code(s): K92.2 - Gastrointestinal hemorrhage, unspecified Status: Acute Assessment and Plan: -H&H every 6 hours -Overnight Hgb dropped to 6.5 and he received 1 unit pRBC. This am Hgb is 7.0 and he is hypotensive. Will transfuse another 1 unit pRBC now. -Hbg 8.9 after 1 unit of pRBC yesterday afternoon. This morning its 8.1. BUN has returned to normal at 12. Hoping next CBC is stable at 11 am and then we can advance his diet for lunch. -GI has been consulted for EGD-found 7mm duodenal ulcer which was clipped, biopsy taken. -full liquids -Protonix 40 mg increased to BID (2) Anemia: Code(s): D64.9 - Anemia, unspecified Status: Acute Assessment and Plan: -multiple transfusions this admission. Total pRBC 4 units. -trending H/H -cause of bleeding was doudenal ulcer found on EGD. Likely from patient using ibuprofen for rotator cuff injury (3) Essential hypertension: Code(s): I10 - Essential (primary) hypertension Status: Acute Assessment and Plan: -soft blood pressures but gradually improving. Yesterday SBPs in the 120s. -Asymptomatic with low BP (4) Enlarged prostate without lower urinary tract symptoms (luts): Code(s): N40.0 - Benign prostatic hyperplasia without lower urinary tract symptoms Status: Acute Assessment and Plan: Patient has no difficulty at this time. He does not appear to be on any medications for this. (5) Alcoholism: Code(s): F10.20 - Alcohol dependence, uncomplicated Status: Acute Assessment and Plan: -Can do Q shift neuro checks -Past window for withdrawl Subjective Date/time seen: 06/02/23 08:38 Interval history: HPI obtained from chart This is a 77-year-old male patient who went to his GI specialist yesterday with complaints of diarrhea blood in his stool.? The patient stated that he has been having watery stools release 8 months.? He states that he has watery stools at least 4 times a day with no blood in it.? Improved over the last 3 weeks after starting Questran.? Yesterday the patient noticed that he had significant amount of bright dark bloody stools the patient was prompted to go to the emergency room.? By time the patient went to the emergency room he had no additional bowel movements.? No abdominal pain.? His blood count was normal.? He was discharged home.? The patient's last colonoscopy was approximately weight 1 and half years ago and it offered up the diagnosis of diverticulosis, internal hemorrhoids, and several benign colon polyps.? The patient was also having some dysphagia with food catching in midsternal portion the chest. The patient return to the emergency room with complaints of GI bleed.? The patient also had increased lightheadedness increase dark stool and dark tarry stools.? The patient scheduled for a upper GI and colonoscopy in June.? However the patient has become more lightheaded and dizzy.? His prompted him to go to the emergency room to be evaluated today.? He denies any abdominal pain or tenderness.? On 05/28/2023 his H&H is 14.1 and 40.3.? Today when he came to the emergency room his H&H was 8.3 and 24.4.? His H&H then went down to 7.9 and 22.8.? The patient was ordered 2 units packed red blood cells and his H&H is currently 10.0 and 28.7.? GI has been consulted.? An NG-tube was placed and the patient was started on prep for colonoscopy.? The patient will be NPO after midnight.? Initially the patient's blood pressure was 115/65.? Is currently 138/63.? The patient is being admitted to observation status on the date of service of 05/30/2023. Interval history: 05/31: Patient was seen this morning his at bedside. No acute events overnight he does not appear in any acute distress. He states that he is been receiving his GoLYTELY prep through his NG and has been NPO in anticipation of his EGD and colonoscopy toda
--- NOTE | 2023-06-02 09:32 | WPDGIPROGNO ---
Progress Note: A&P Assessment and Plan (1) GIB (gastrointestinal bleeding): Code(s): K92.2 - Gastrointestinal hemorrhage, unspecified Status: Acute Assessment and Plan: egd found DU with visible vessel that required intervention hgb up to 8 after prbc, normalization of BUN and denies melena he is doing much better in fact would like to go home will advance diet, will need PPI twice daily at least for 3 months no nsaid's follow-up office in 3-4 weeks (2) Duodenal ulcer: Code(s): K26.9 - Duodenal ulcer, unspecified as acute or chronic, without hemorrhage or perforation Status: Acute Assessment and Plan: source of UGIB treated (3) Acute blood loss anemia: Code(s): D62 - Acute posthemorrhagic anemia Status: Acute Assessment and Plan: s/p blood transfusion iron supplement CBC as outpatient Subjective Date/time seen: 06/02/23 09:32 Interval history: no more signs of bleeding, doing well, no recent BM. Review of Systems Review of Systems: All systems reviewed & are unremarkable except as noted in HPI and below Exam Const: General: comfortable and no acute distress HENMT: Face/Nose/Sinus: Normal nares present Eyes: General: appearance normal, both eyes and all related structures Neck: Neck: no JVD Resp: Auscultation: clear to auscultation bilaterally Cardio: Rate: regular rate Rhythm: regular rhythm GI: Inspection: non-distended GI Palp: Yes Soft to palpation Skin: General skin exam: normal color Neuro: General: gait normal Speech: normal speech Extrem: General: normal to inspection Psych: Mental Status: mental status grossly normal Objective Data Vital Signs Vital Signs: Vital Signs - 24 hr 06/01/23 11:30 06/01/23 11:45 06/01/23 12:46 Temperature 98.0 F 97.8 F 97.8 F Pulse Rate 66 68 69 Respiratory Rate 16 16 16 Blood Pressure 125/66 132/71 125/67 Pulse Oximetry 100 100 99 06/01/23 12:00 06/01/23 13:46 06/01/23 13:15 Temperature 97.9 F 97.9 F Pulse Rate 68 70 70 Respiratory Rate 16 16 Blood Pressure 138/68 138/68 Pulse Oximetry 100 100 06/01/23 14:30 06/01/23 16:00 06/01/23 19:55 Temperature 97.9 F 97.3 F L Pulse Rate 69 66 66 Respiratory Rate 16 17 Blood Pressure 119/69 120/67 Pulse Oximetry 98 100 06/01/23 20:00 06/02/23 00:00 06/02/23 04:00 Temperature Pulse Rate 70 64 60 Respiratory Rate Blood Pressure Pulse Oximetry 06/02/23 04:59 Temperature 97.2 F L Pulse Rate 65 Respiratory Rate 16 Blood Pressure 111/55 L Pulse Oximetry 99 Intake/Output Intake/Output: Intake & Output 05/30/23 05/31/23 06/01/23 06/02/23 23:59 23:59 23:59 23:59 Intake Total 2180 2730 4210 350 Output Total 2550 450 Balance 2180 2730 1660 -100 Meds/Results Medications: Active Medications Generic Name Dose Route Start Last Admin Trade Name Freq PRN Reason Stop Dose Admin Folic Acid 1 mg 05/31/23 09:00 06/01/23 08:56 Folic Acid 1 Mg/0.2 Ml Inj IV PUSH 1 mg QAM GIANNA Administration Hydralazine HCl 10 mg 05/30/23 23:46 Hydralazine Hcl 20 Mg/Ml Vial IV PUSH Q8H PRN Blood Pressure - High Sodium Chloride 1,000 mls @ 125 mls/hr 05/30/23 13:05 06/01/23 23:54 Normal Saline Iv IV CONT 125 mls/hr .Q8H GIANNA Administration Lorazepam 2 mg 05/30/23 17:17 Lorazepam Inj (*Crx) 2 Mg/Ml Vial IV PUSH Q4H PRN Withdrawal Nicotine 1 patch 05/30/23 17:30 06/01/23 08:31 Nicotine (*Pbkc) 7 Mg Patch TRANSDERM Not Given QAM GIANNA Ondansetron HCl 4 mg 05/30/23 17:17 Ondansetron Inj 4 Mg/2 Ml Vial IV PUSH Q6H PRN Nausea And Vomiting Pantoprazole Sodium 40 mg 05/31/23 09:00 06/01/23 17:33 Pantoprazole Sodium Iv 40 Mg Vial IV PUSH 40 mg BID GIANNA Administration Phenol 1 spray 05/30/23 17:19 05/30/23 19:52 Phenol/Sod Pheno [place] (*Bkc) MUCOUS MEM 1 spray PRN PRN Administration Sore Throat Sucralfat
[2023-06-02] MEDS: FOLIC ACID 1 MG TABLET PO (11:47)
[2023-06-02] MEDS: THIAMINE HCL 50 MG TABLET PO (11:47)
[2023-06-02 12:00] VITALS: PULSE 69
[2023-06-02 12:12] LABS: Hematocrit 25.2 % (42.0-52.0); Hemoglobin 8.5 g/dL (14.0-18.0); Mean Corpuscular HGB Conc 33.7 g/dl (32-36); Mean Corpuscular Hemoglobin 31.7 pg (26-34); Mean Platelet Volume 9.8 fl (7.4-10.4); Platelet Count Result 188 k/mm3 (150-375); Red Blood Count 2.68 M/mm3 (4.6-6.20); Red Cell Distribution Width 15.6 % (11.5-14.5); White Blood Count 8.1 K/mm3 (4.5-10.0)
--- NOTE | 2023-06-02 12:51 | PM.DS ---
DS: Admitting Diagnosis Discharge Date SaturdayJune 02 Admitting Diagnosis Acute blood loss anemia DS: Discharge Diagnosis Discharge Diagnosis (1) Acute lower GI bleeding: Code(s): K92.2 - Gastrointestinal hemorrhage, unspecified Status: Acute (2) Anemia: Code(s): D64.9 - Anemia, unspecified Status: Acute (3) Essential hypertension: Code(s): I10 - Essential (primary) hypertension Status: Acute (4) Enlarged prostate without lower urinary tract symptoms (luts): Code(s): N40.0 - Benign prostatic hyperplasia without lower urinary tract symptoms Status: Acute (5) Alcoholism: Code(s): F10.20 - Alcohol dependence, uncomplicated Status: Acute Plan Assessment and Plan (1) Acute lower GI bleeding: ?Code(s): K92.2 - Gastrointestinal hemorrhage, unspecified ?Status:?Acute ?Assessment and Plan: -H&H every 6 hours -Overnight Hgb dropped to 6.5 and he received 1 unit pRBC. This am Hgb is 7.0 and he is hypotensive. Will transfuse another 1 unit pRBC now. -GI has been consulted for EGD-found 7mm duodenal ulcer which was clipped, biopsy taken. -clear liquids -Protonix 40 mg increased to BID (2) Anemia: ?Code(s): D64.9 - Anemia, unspecified ?Status:?Acute ?Assessment and Plan: The patient was given 2 units of packed red blood cells.? H&H is every 6 hours.? The patient was noted to have bloody watery stools.? Hold any NSAIDs. (3) Essential hypertension: ?Code(s): I10 - Essential (primary) hypertension ?Status:?Acute ?Assessment and Plan: Patient's blood pressure was low initially and is normalized since then.? P.r.n. hydralazine with parameters.? Irbesartan is on hold at this time (4) Enlarged prostate without lower urinary tract symptoms (luts): ?Code(s): N40.0 - Benign prostatic hyperplasia without lower urinary tract symptoms ?Status:?Acute ?Assessment and Plan: Patient has no difficulty at this time.? He does not appear to be on any medications for this. (5) Alcoholism: ?Code(s): F10.20 - Alcohol dependence, uncomplicated ?Status:?Acute ?Assessment and Plan: DS: Summary Hospital Course Reason for hospitalization: Acute blood loss anemia Hospital Course: This is a 77-year-old male patient who went to his GI specialist yesterday with complaints of diarrhea blood in his stool.? The patient stated that he has been having watery stools release 8 months.? He states that he has watery stools at least 4 times a day with no blood in it.? Improved over the last 3 weeks after starting Questran.? Yesterday the patient noticed that he had significant amount of bright dark bloody stools the patient was prompted to go to the emergency room.? By time the patient went to the emergency room he had no additional bowel movements.? No abdominal pain.? His blood count was normal.? He was discharged home.? The patient's last colonoscopy was approximately weight 1 and half years ago and it offered up the diagnosis of diverticulosis, internal hemorrhoids, and several benign colon polyps.? The patient was also having some dysphagia with food catching in midsternal portion the chest. The patient return to the emergency room with complaints of GI bleed.? The patient also had increased lightheadedness increase dark stool and dark tarry stools.? The patient scheduled for a upper GI and colonoscopy in June.? However the patient has become more lightheaded and dizzy.? His prompted him to go to the emergency room to be evaluated today.? He denies any abdominal pain or tenderness.? On 05/28/2023 his H&H is 14.1 and 40.3.? Today when he came to the emergency room his H&H was 8.3 and 24.4.? His H&H then went down to 7.9 and 22.8.? The patient was ordered 2 units packed red blood cells and his H&H is currently 10.0 and 28.7.? GI has been consulted.? An NG-tube was placed and the patient was started on prep for colonoscopy.? The patient will be
== END 2023-06-02 14:45 | disposition home or self-care (01) | DRG 378 ==
LOC: ANHED 11:32 → ANH2MED 14:58
PROVIDERS: Internal Medicine Gastroenterology; Nurse Practitioner; Admitting Provider Student in an Organized Health Care Education/Training Program; Emergency Provider Emergency Medicine; PCP Family Medicine; Visit Provider Nurse Practitioner Acute Care
PROC: 0DJ08ZZ Inspection of Upper Intestinal Tract, Via Natural or Artificial Opening Endoscopic (ICD-10-PCS; CPT 43235; principal; 2023-05-31 14:00)
DX: K26.4 Chronic or unspecified duodenal ulcer with hemorrhage (principal); D62 Acute posthemorrhagic anemia; N40.0 Benign prostatic hyperplasia without lower urinary tract symptoms; I10 Essential (primary) hypertension; F10.20 Alcohol dependence, uncomplicated; M75.51 Bursitis of right shoulder; F17.210 Nicotine dependence, cigarettes, uncomplicated; R13.10 Dysphagia, unspecified
CPT/HCPCS: 36415; 36430; 71045; 74177; 80048; 80053; 81001; 81003; 82271; 82948; 83605; 83690; 83735; 83986; 84443; 85014; 85018; 85025; 85027; 85610; 85730; 86850; 86900; 86901; 86923; 87045; 87081; 87269; 87272; 87427; 89055; 93005; 96361; 96365; 96374; 96375; 99284; 99285; A9270; C9113; G0378; J0171; J2405; J2704; J3010; J3411; J3475; J7030; J7040; J7050; J7120; P9016; Q9967

== ENCOUNTER 2023-06-10 15:52 | Outpatient (CLI) | payer MEDICARE, OTHER, SELFPAY ==
[2023-06-10 16:12] LABS: Hematocrit 28.6 % (42.0-52.0); Hemoglobin 9.2 g/dL (14.0-18.0); Mean Corpuscular HGB Conc 32.2 g/dl (32-36); Mean Corpuscular Hemoglobin 30.7 pg (26-34); Mean Corpuscular Volume 95.3 fl (80-100); Platelet Count Result 356 k/mm3 (150-375); Red Cell Distribution Width 15.5 % (11.5-14.5); White Blood Count 6.8 K/mm3 (4.5-10.0)
== END 2023-06-10 15:53 | disposition home or self-care (01) ==
LOC: ANHLAB 15:54
PROVIDERS: PCP Family Medicine; Visit Provider Internal Medicine Gastroenterology
DX: E55.9 Vitamin D deficiency, unspecified (principal)
CPT/HCPCS: 36415; 85027

== ENCOUNTER 2023-06-28 12:23 | Outpatient (CLI) | payer MEDICARE, OTHER, SELFPAY ==
[2023-06-28 12:57] LABS: Hematocrit 38.7 % (42.0-52.0); Hemoglobin 12.5 g/dL (14.0-18.0)
== END 2023-06-28 12:24 | disposition home or self-care (01) ==
PROVIDERS: Anesthesiology; PCP Family Medicine; Visit Provider Orthopaedic Surgery
DX: D64.9 Anemia, unspecified (principal); Z01.818 Encounter for other preprocedural examination
CPT/HCPCS: 36415; 85014; 85018

== ENCOUNTER 2023-07-04 00:56 | Day surgery (SDC) | payer MEDICARE, OTHER, SELFPAY ==
[2023-05-31 14:12] VITALS: BMI 25.1
--- NOTE | 2023-05-31 14:34 | PC.NURSE ---
Report to the Outpatient Waiting Room, entrance under the green pavilion located off [facility], at time _10:00AM on date __06/06/23 . Planned Procedure Time: __12:00PM . Time changes happen often and if your time is changed the preop area will call you the afternoon before. - You and your visitor will be asked to self-screen and do not enter if you have any COVID symptoms. - A mask is optional within the hospital at this time. Patients may have clear liquids (water, carbonated beverages, clear teas, apple juice) until 3 hours prior to surgery with a maximum of 20 ounces. - No food from midnight until time of surgery Take the following medications with a SIP of water the morning of surgery: ___HYDROCODONE NEEDED DO NOT STOP ANY OF YOUR OTHER PRESCRIPTION MEDICATIONS PRIOR TO SURGERY ?EXCEPT THE FOLLOWING Medications to discontinue per physician ___HOLD ALL VITAMINS/SUPPLEMENTS 3 DAYS PRE-OP Date to take last dose__06/02/23 Please no make-up, nail albanian, hairspray, perfume, deodorant, or body powder the day of surgery. No jewelry (including any body piercings) or valuables the day of surgery, leave them at home. Please take a shower or bath the night before, or the morning of, surgery with an antibacterial soap. Wear comfortable, loose fitting clothing. Children are encouraged to wear pajamas. - Jewelry must be removed prior to entering the operating room. Rings and piercings that are not removed may be cut off. - The hospital will not accept responsibility for valuables. - Please leave all valuables, including medications, at home the day of surgery. If you are going home after surgery, a licensed regional [employer] company driver must drive you home. - NO public transportation without another adult if you receive anesthesia. - We recommend that an adult stay with you for 24 hours following discharge. - We also recommend that you do not drive, make important decision, drink alcoholic beverages, or take any drugs that were not prescribed by your health care provider for at least 24 hours after your discharge time. Follow any additional instructions given to you from your surgeon. If you or anyone in your household have experienced Covid symptoms in the past week, please notify your surgeon or the nurse liaison at the phone number below for possible testing. Telephone instructions given to __PATIENT & WIFE and asked if any additional questions and then verbalized understanding. Patient advised to call surgeon office or pre surgery nurse liaison [phone] if any additional questions.
--- NOTE | 2023-06-27 08:56 | PC.NURSE ---
Report to the Outpatient Waiting Room, entrance under the green pavilion located off [facility], at time __10:00AM on date __07/04/23 . Planned Procedure Time: __12:00PM . Time changes happen often and if your time is changed the preop area will call you the afternoon before. - You and your visitor will be asked to self-screen and do not enter if you have any COVID symptoms. - A mask is optional within the hospital at this time. Patients may have clear liquids (water, carbonated beverages, clear teas, apple juice) until 3 hours prior to surgery with a maximum of 20 ounces. - No food from midnight until time of surgery Take the following medications with a SIP of water the morning of surgery: __HYDROCODONE NEEDED DO NOT STOP ANY OF YOUR OTHER PRESCRIPTION MEDICATIONS PRIOR TO SURGERY ?EXCEPT THE FOLLOWING Medications to discontinue per physician __NONE Date to take last dose Please no LOTION/OINTMENTS, make-up, nail french, hairspray, perfume, deodorant, or body powder the day of surgery. No jewelry (including any body piercings) or valuables the day of surgery, leave them at home. Please take a shower or bath the night before, or the morning of, surgery with an antibacterial soap. Wear comfortable, loose fitting clothing. - Jewelry must be removed prior to entering the operating room. Rings and piercings that are not removed may be cut off. - The hospital will not accept responsibility for valuables. - Please leave all valuables, including medications, at home the day of surgery. If you are going home after surgery, a licensed fleet driver must drive you home. - NO public transportation without another adult if you receive anesthesia. - We recommend that an adult stay with you for 24 hours following discharge. - We also recommend that you do not drive, make important decision, drink alcoholic beverages, or take any drugs that were not prescribed by your health care provider for at least 24 hours after your discharge time. Follow any additional instructions given to you from your surgeon. If you or anyone in your household have experienced Covid symptoms in the past week, please notify your surgeon or the nurse liaison at the phone number below for possible testing. Telephone instructions given to ___PATIENT and asked if any additional questions and then verbalized understanding. Patient advised to call surgeon office or pre surgery nurse liaison [phone] if any additional questions.10:00AM
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
[2023-07-04] VITALS (8 sets, daily range): BP systolic 113–155; BP diastolic 55–73; PULSE 61–72; RESP 14–16; TEMP 36–36.4; O2SAT 94–98
--- NOTE | ~2023-07-04 | XR_ITS ---
EXAMINATION: XR surgery orthopedic DATE: 07/04/2023 14:47 INDICATION: Broken piece of needle in the right shoulder TECHNIQUE: 7 views of the right shoulder were obtained during procedure performed by Dr. Mullen. Rad iologist was not present for the imaging or procedure. COMPARISON: None. FINDINGS: Tiny metallic needle fragment projects over the region of the rotator cuff and the right subacromial space. The tip of a pair of forceps likely for marking project near the metallic density on several o f the images. Expected small amount of surgery related intra-articular and soft tissue gas. Bone alig nment is normal. No fracture. IMPRESSION: 1. Tiny metallic foreign body projecting over the rotator cuff at the subacromial space. Reviewed, dictated and finalized at location A. IMPRESSION: 1. Tiny metallic foreign body projecting over the rotator cuff at the subacromi al space.
--- NOTE | 2023-07-04 08:17 | WPDHPUPDATE1 ---
History and Physical Update Update Date/Time: 07/04/23 08:17 History and Physical has been reviewed, including an updated exam of the patient. There are NO changes in the patient's condition. Risks, benefits, and alternatives have been discussed and questions answered. Patient agrees to proceed with procedure.
[2023-07-04] MEDS: ACETAMINOPHEN 500 MG TABLET 1000 MG PO (10:01)
[2023-07-04] MEDS: LACTATED RINGERS 1,000 ML 30 ML IV CONT ×2 (10:30→15:24)
[2023-07-04] MEDS: KETOROLAC 15 MG/ML VIAL (*BKC) IV PUSH (10:51)
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
[2023-07-04] MEDS: ceFAZolin 2 GM/D5W 50 ML 2 GM/50 ML BAG IVPB (12:19)
[2023-07-04] MEDS: BUPIVACAINE/EPINEPHRINE 0.5% 10 ML VIAL 30 ML INFILTRATE (12:53)
--- NOTE | 2023-07-04 15:32 | W.PM.PROC2 ---
Procedure Note - Detailed Date of Procedure 07/04/23 Pre-op Diagnosis Rt Rot Cuff Tear, Shoulder Pain, Bices Tendonitis Post-op Diagnosis Same Procedure Performed Right shoulder arthroscopy with extensive debridement including the labrum, glenohumeral articular surface, rotator cuff, bicep with open rotator cuff repair biceps tenodesis, distal clavicle excision and subacromial decompression. Surgeon Med Mullen MD [employer] Officer 1st ortho assistant Anesthesia General Indications 77-year-old gentleman with right shoulder pain. MRI demonstrates rotator cuff tear, biceps tendinitis and degenerative changes. He has failed conservative treatment and presents now for operative treatment. Findings Full-thickness tear of the supraspinatus with 1 cm of retraction, delamination of the tendon. Moderate tendinosis biceps tendon, intra-articular. Grade 1 chondromalacia glenohumeral articular surface. Superior labrum intact. Moderate degenerative changes acromioclavicular joint and subacromial spur. Description of Procedure Patient identified in the preoperative holding. Informed consent given. Operative extremity marked. Patient received intravenous antibiotics. Patient brought to the operating room where underwent general anesthetic by anesthesia team. Positioned supine on operating room table. Time-out performed confirming the patient, site of the surgery and the plan. Patient was then positioned in the beach chair position with careful securing of the head and neck. Right shoulder was then prepped and draped usual sterile surgical fashion using a ChloraPrep skin solution. Local anesthetic with 0.5% Marcaine with epinephrine was used at the portal sites. Standard posterior arthroscopy portal position with a 22 gauge spinal needle and infiltrating of the joint with saline. Eleven blade knife used to incise the skin and blunt penetration of the soft tissue and posterior capsule. Camera and inflow restarted through this portal. The shoulder was inspected and above findings were noted. Anterior portal was then made using positioning from a 22 gauge spinal needle, 11 blade knife for the skin and blunt penetration of the anterior capsule. 4.5 mm arthroscopic shaver introduced and a debridement of the shoulder joint was performed including the glenoid and humeral head, undersurface of the rotator cuff, labrum and the rotator cuff tear site itself. Arthroscopic wand introduced and bleeding points were coagulated. Any excess synovitis was removed with the Wand. Noting the degenerative changes and tear of the biceps tendon the tendon was tagged with the scoping device. The biceps tendon was then released with the arthroscopic Wand. The lateral incision was then made 3 cm for a mini open type approach. Retractors were placed and the deltoid muscle was split in line with the skin incision. Fascia acromioclavicular joint was incised and debrided from the joint was removed with a rongeur. Distal clavicle was excised with a sagittal saw. Approximately 3 mm was. Edges smoothed with a rongeur. Undersurface of the acromion smoothed with a rasp rongeur. Thorough irrigation. Capsule was then repaired with 0 Vicryl suture. The rotator cuff tear was identified. The footprint on the humeral tuberosity was then prepared with a rongeur and rasp. Thorough irrigation was performed. Two medial row fiber tacks were then placed using fiber tack anchors with FiberWire suture. Suture tape was then passed through the rotator cuff to provide sufficient tissue for repair. Repair was then performed by using 2 lateral anchors and cross stitching the suture tape. The arm was abducted to aid in the repair. Sutures were cut and the arm was then taken through a full range of motion and noted to be stable. No impingement noted. There was no excess tear or dog ear which required repair. Tag stitch from the biceps tendon was then identified. This was placed into a bony tunnel at the proximal as
== END 2023-07-04 16:56 | disposition home or self-care (01) ==
PROVIDERS: PCP Family Medicine; Visit Provider Orthopaedic Surgery
PROC: (CPT 29805; principal; 2023-07-04 12:00)
PROC: (CPT 24341; 2023-07-04 12:00)
DX: M75.121 Complete rotator cuff tear or rupture of right shoulder, not specified as traumatic (principal); M75.21 Bicipital tendinitis, right shoulder; M94.211 Chondromalacia, right shoulder; M19.011 Primary osteoarthritis, right shoulder; I10 Essential (primary) hypertension; F17.290 Nicotine dependence, other tobacco product, uncomplicated
CPT/HCPCS: 29827; 29828; 29826; 29824; 99199; A4565; A9270; C1713; J0330; J0690; J1100; J1170; J1885; J2405; J2704; J3010; J7120

== ENCOUNTER 2023-08-14 09:25 | Outpatient (NON) | payer MEDICARE, OTHER, SELFPAY ==
[2023-08-14 10:24] LABS: Toxigenic C. Diff NEGATIVE (NEGATIVE)
== END 2023-08-14 09:26 | disposition home or self-care (01) ==
LOC: ANHLAB 09:27
PROVIDERS: PCP Family Medicine; Visit Provider Internal Medicine Gastroenterology
DX: R19.7 Diarrhea, unspecified (principal)
CPT/HCPCS: 87045; 87427; 87449; 87493; 89055

== ENCOUNTER 2023-09-03 01:50 | Day surgery (SDC) | payer MEDICARE, OTHER, SELFPAY ==
[2023-08-22 12:30] VITALS: BMI 24.5
[2023-09-03 09:50] VITALS: BP 120/73; PULSE 72; RESP 18; TEMP 36.3; O2SAT 99; BMI 24.6
[2023-09-03] MEDS: LACTATED RINGERS 1,000 ML 150 ML IV CONT (10:22)
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
[2023-09-03 11:49] VITALS: BP 131/75; PULSE 71; RESP 20; O2SAT 97
[2023-09-03 11:59] VITALS: BP 137/80; PULSE 70; RESP 21; O2SAT 98
[2023-09-03 12:09] VITALS: BP 149/84; PULSE 68; RESP 22; O2SAT 99
== END 2023-09-03 12:22 | disposition home or self-care (01) ==
PROVIDERS: PCP Family Medicine; Visit Provider Internal Medicine Gastroenterology
PROC: 0DJD8ZZ Inspection of Lower Intestinal Tract, Via Natural or Artificial Opening Endoscopic (ICD-10-PCS; CPT 45378; principal; 2023-09-03 11:00)
DX: Z09 Encounter for follow-up examination after completed treatment for conditions other than malignant neoplasm (principal); D12.5 Benign neoplasm of sigmoid colon; K64.8 Other hemorrhoids; I10 Essential (primary) hypertension; F17.290 Nicotine dependence, other tobacco product, uncomplicated; Z87.11 Personal history of peptic ulcer disease
CPT/HCPCS: 45380; 88305; J2704; J7120

== ENCOUNTER 2023-10-09 11:57 | Outpatient (CLI) | payer MEDICARE, OTHER, SELFPAY ==
[2023-10-09 12:37] LABS: Hemoglobin 14.1 g/dL (14.0-18.0); Mean Corpuscular HGB Conc 30.7 g/dl (32-36); Mean Corpuscular Hemoglobin 24.9 pg (26-34); Mean Corpuscular Volume 81.3 fl (80-100); Mean Platelet Volume 8.8 fl (7.4-10.4); Platelet Count Result 335 k/mm3 (150-375); Red Blood Count 5.66 M/mm3 (4.6-6.20); Red Cell Distribution Width 16.5 % (11.5-14.5); White Blood Count 6.7 K/mm3 (4.5-10.0)
[2023-10-09 12:50] LABS: Alanine Aminotransferase 19 U/L (6-50); Albumin Level 4.8 g/dL (3.5-5.1); Alkaline Phosphatase 74 U/L (38-126); Anion Gap 14 mmol/L (8-16); Aspartate Amino Transferase 23 U/L (17-59); Bilirubin,Total 0.7 mg/dL (0.2-1.3); Blood Urea Nitrogen 18 mg/dL (9-20); Calcium 9.6 mg/dL (8.4-10.2); Carbon Dioxide 22 mmol/L (22-30); Chloride 103 mmol/L (98-107); Estimated Glomerular Filt Rate > 60; Glucose 100 mg/dL (65-110); Potassium 4.4 mmol/L (3.4-5.0); Sodium 139 mmol/L (137-145)
[2023-10-09 13:22] LABS: Thyroid Stimulating Hormone 0.986 uIU/mL (0.465-4.680)
[2023-10-09 14:17] LABS: Folic Acid 15.8 ng/mL (2.76->20)
== END 2023-10-09 11:58 | disposition home or self-care (01) ==
LOC: ANHLAB 11:59
PROVIDERS: PCP Family Medicine; Visit Provider Family Medicine
DX: D62 Acute posthemorrhagic anemia (principal); I10 Essential (primary) hypertension; R53.83 Other fatigue; E55.9 Vitamin D deficiency, unspecified; R13.10 Dysphagia, unspecified
CPT/HCPCS: 36415; 80053; 82607; 82746; 84443; 85027

== ENCOUNTER 2024-01-03 11:53 | Outpatient (CLI) | payer MEDICARE, OTHER, SELFPAY ==
[2024-01-03 14:44] LABS: Hematocrit 49.5 % (42.0-52.0); Hemoglobin 15.7 g/dL (14.0-18.0); Mean Corpuscular HGB Conc 31.7 g/dl (32-36); Mean Corpuscular Hemoglobin 28.5 pg (26-34); Mean Platelet Volume 10.4 fl (7.4-10.4); Platelet Count Result 327 k/mm3 (150-375); Red Cell Distribution Width 18.1 % (11.5-14.5); White Blood Count 6.7 K/mm3 (4.5-10.0)
== END 2024-01-03 11:54 | disposition home or self-care (01) ==
LOC: ANHLAB 11:56
PROVIDERS: PCP Family Medicine; Visit Provider Physician Assistant Medical
DX: E55.9 Vitamin D deficiency, unspecified (principal); I10 Essential (primary) hypertension; K26.9 Duodenal ulcer, unspecified as acute or chronic, without hemorrhage or perforation
CPT/HCPCS: 36415; 85027

== ENCOUNTER 2024-03-13 12:49 | Outpatient (CLI) | payer MEDICARE, OTHER, SELFPAY ==
--- NOTE | ~2024-03-13 | MR_ITS ---
EXAMINATION: MR abdomen wo/w con DATE: 03/13/2024 14:43 INDICATION: Adrenal mass. TECHNIQUE: Magnetic resonance imaging (MRI) of the abdomen was performed without and with 16 mL Multi Jamari intravenous contrast. COMPARISON: CT abdomen and pelvis 05/28/2023, 08/12/21 FINDINGS: The liver, gallbladder, spleen, pancreas, and right adrenal gland are normal. There is a 13 mm mass i n left adrenal gland containing microscopic fat, consistent with an adenoma. There are cysts in the k idneys measuring up to 6 mm on the left. There are no dilated loops of bowel. There are no pathologic ally enlarged lymph nodes. There is no free intraperitoneal fluid. IMPRESSION: 1. 13 mm left adrenal adenoma, stable from 08/12/2021. Reviewed, dictated and finalized at location A.
--- NOTE | ~2024-03-13 | CT_ITS ---
EXAMINATION: CT lung screening DATE: 03/13/2024 13:11 INDICATION: Personal history of nicotine dependence TECHNIQUE: Computed tomography (CT) of the chest was performed without intravenous contrast. The dose -length product was 122.80 mGy-cm. Automated exposure control and iterative reconstruction technique were employed. COMPARISON: No prior studies for comparison. FINDINGS: Mild mediastinal lymphadenopathy, likely reactive. There is atherosclerosis of the aorta an d coronary arteries. Heart size normal. No significant pleural or pericardial effusion. Upper abdomen is unremarkable. There is emphysema. No endobronchial lesions. There is a 4 mm left lower lobe nodul e. There are areas of interlobular septal thickening in the mid and lower lungs, possibly early fibro sis. No pneumothorax. IMPRESSION: 1. Reviewed, dictated and finalized at location B. IMPRESSION: 1.
== END 2024-03-13 12:50 | disposition home or self-care (01) ==
LOC: ANHIMG 12:52
PROVIDERS: PCP Family Medicine; Visit Provider Physician Assistant Medical
DX: Z12.2 Encounter for screening for malignant neoplasm of respiratory organs (principal); F17.210 Nicotine dependence, cigarettes, uncomplicated; E27.8 Other specified disorders of adrenal gland; D35.02 Benign neoplasm of left adrenal gland
CPT/HCPCS: 71271; 74183; A9577

== ENCOUNTER 2024-05-05 11:31 | Outpatient (CLI) | payer MEDICARE, OTHER, SELFPAY ==
[2024-05-05 12:02] LABS: Hematocrit 43.7 % (42.0-52.0); Hemoglobin 14.7 g/dL (14.0-18.0); Mean Corpuscular HGB Conc 33.6 g/dl (32-36); Mean Corpuscular Hemoglobin 29.1 pg (26-34); Mean Corpuscular Volume 86.4 fl (80-100); Mean Platelet Volume 9.5 fl (7.4-10.4); Platelet Count Result 284 k/mm3 (150-375); Red Blood Count 5.06 M/mm3 (4.6-6.20); White Blood Count 9.7 K/mm3 (4.5-10.0)
[2024-05-05 12:05] LABS: Appearance Urine Clear (Clear); Bilirubin Urine Negative (Negative); Blood Urine Negative (Negative); Color Urine Yellow (Yellow); Glucose Urine UA Negative (Negative); Ketones Urine Negative (Negative); Leukocyte Esterase Ur Negative LEU/UL (Negative); Nitrate Urine Negative (Negative); Protein Urine Negative (Negative); Specific Grav Ur 1.016 (1.001-1.035); Urobilinogen Urine 0.2 mg/dL (<2.0); pH Urine 5.5 (5.0-9.0)
[2024-05-05 12:08] LABS: Add Urine Microscopic? NO
[2024-05-05 12:23] LABS: Alanine Aminotransferase 16 U/L (6-50); Albumin Level 4.5 g/dL (3.5-5.1); Alkaline Phosphatase 71 U/L (38-126); Anion Gap 12 mmol/L (4-12); Aspartate Amino Transferase 19 U/L (17-59); Bilirubin,Total 0.7 mg/dL (0.2-1.3); Blood Urea Nitrogen 15 mg/dL (9-20); Calcium 9.4 mg/dL (8.4-10.2); Carbon Dioxide 20 mmol/L (22-30); Chloride 105 mmol/L (98-107); Cholesterol 172 mg/dL (0-200); Estimated Glomerular Filt Rate > 60; Glucose 95 mg/dL (65-110); HDL Direct 56 mg/dL; Potassium 4.4 mmol/L (3.4-5.0); Sodium 137 mmol/L (137-145); Triglycerides 60 mg/dL (<150)
[2024-05-05 12:35] LABS: LDL Cholesterol Direct 107 mg/dL
== END 2024-05-05 11:32 | disposition home or self-care (01) ==
PROVIDERS: PCP Family Medicine; Visit Provider Family Medicine
DX: R13.10 Dysphagia, unspecified (principal); E55.9 Vitamin D deficiency, unspecified; E78.5 Hyperlipidemia, unspecified; I10 Essential (primary) hypertension; R35.1 Nocturia; N40.0 Benign prostatic hyperplasia without lower urinary tract symptoms
CPT/HCPCS: 36415; 80053; 80061; 81003; 84443; 85027

== ENCOUNTER 2024-05-18 14:12 | Outpatient (CLI) | payer MEDICARE, OTHER, SELFPAY ==
--- NOTE | ~2024-05-18 | XR_ITS ---
EXAMINATION: XR chest 2V Exam Date/Time: 05/18/2024 14:20 CDT HISTORY: R59.1 - Generalized enlarged lymph nodes Comparison: 05/30/2023; CT lung screening 03/13/2024. RESULT: Lines, tubes, and devices: None. Lungs and pleura: Peripheral bilateral upper lung reticular and cystic opacities, likely related to emphysematous change. Peripheral bilateral lower lung reticulonodular opacities, possibly related to mild interstitial changes. Cardiomediastinal silhouette: Stable. Other: No acute osseous or upper abdominal finding. IMPRESSION: No acute cardiopulmonary process. Reviewed, dictated and finalized at location K.
[2024-05-18 14:59] LABS: Basophils Percent Auto 0.4 % (0.2-1.2); Eosinophils Absolute Auto 0.2 K/mm3 (0-0.3); Eosinophils Percent Auto 2.3 % (0-4.4); Hematocrit 43.8 % (42.0-52.0); Hemoglobin 15.3 g/dL (14.0-18.0); Immature Granulocyte Absolute 0.02 K/mm3 (0.00-0.031); Immature Granulocyte Percent A 0.3 % (0-0.5); Lymphocytes Absolute Auto 2.26 K/mm3 (0.9-3.2); Lymphocytes Percent Auto 28.7 % (18.3-44.2); Mean Corpuscular HGB Conc 34.9 g/dl (32-36); Mean Corpuscular Volume 85.9 fl (80-100); Mean Platelet Volume 9.6 fl (7.4-10.4); Monocytes Absolute Auto 0.7 K/mm3 (0.1-0.6); Monocytes Percent Auto 9.3 % (2.6-8.5); Neutrophils Absolute Auto 4.7 K/mm3 (1.3-6.7); Platelet Count Result 281 k/mm3 (150-375); Red Cell Distribution Width 15.8 % (11.5-14.5); White Blood Count 7.9 K/mm3 (4.5-10.0)
[2024-05-18 15:09] LABS: Alanine Aminotransferase 18 U/L (6-50); Alkaline Phosphatase 70 U/L (38-126); Anion Gap 13 mmol/L (4-12); Aspartate Amino Transferase 22 U/L (17-59); Bilirubin,Total 1.1 mg/dL (0.2-1.3); Blood Urea Nitrogen 30 mg/dL (9-20); Calcium 9.5 mg/dL (8.4-10.2); Carbon Dioxide 20 mmol/L (22-30); Chloride 102 mmol/L (98-107); Estimated Glomerular Filt Rate > 60; Glucose 115 mg/dL (65-110); Potassium 3.9 mmol/L (3.4-5.0); Sodium 135 mmol/L (137-145)
== END 2024-05-18 14:13 | disposition home or self-care (01) ==
PROVIDERS: PCP Family Medicine; Visit Provider Family Medicine
DX: R59.1 Generalized enlarged lymph nodes (principal); E55.9 Vitamin D deficiency, unspecified; I10 Essential (primary) hypertension
CPT/HCPCS: 36415; 71046; 80053; 85025

== ENCOUNTER 2024-05-24 08:59 | Emergency (ER) | payer MEDICARE, OTHER, SELFPAY ==
[2024-05-24 09:06] VITALS: BP 136/67; PULSE 72; RESP 18; TEMP 36.6; O2SAT 99
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
[2024-05-24 09:09] VITALS: BP 136/67; PULSE 72; RESP 18; TEMP 36.6; O2SAT 99
[2024-05-24 09:24] LABS: EDSTREPNEGPOS1 Presumptive Negative
== END 2024-05-24 09:38 | disposition home or self-care (01) ==
PROVIDERS: Emergency Provider Nurse Practitioner Family; PCP Family Medicine
DX: J02.9 Acute pharyngitis, unspecified (principal); Z87.891 Personal history of nicotine dependence; I10 Essential (primary) hypertension
CPT/HCPCS: 87081; 87880; 99213; G0463

== ENCOUNTER 2024-06-01 12:18 | Emergency (ER) | payer MEDICARE, OTHER, SELFPAY ==
[2024-06-01 12:29] VITALS: BP 138/96; PULSE 76; RESP 18; TEMP 36.9; O2SAT 95
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
== END 2024-06-01 12:55 | disposition home or self-care (01) ==
PROVIDERS: Emergency Provider Nurse Practitioner Family; PCP Family Medicine
DX: B37.0 Candidal stomatitis (principal); Z87.891 Personal history of nicotine dependence; I10 Essential (primary) hypertension
CPT/HCPCS: 99213; G0463

== ENCOUNTER 2024-06-14 17:34 | Emergency (ER) | payer MEDICARE, OTHER, SELFPAY ==
[2024-06-14 17:42] VITALS: BP 131/74; PULSE 67; RESP 16; TEMP 36.3; O2SAT 100
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
== END 2024-06-14 18:07 | disposition home or self-care (01) ==
PROVIDERS: Emergency Provider Nurse Practitioner Family; PCP Family Medicine
DX: B37.0 Candidal stomatitis (principal); Z87.891 Personal history of nicotine dependence; I10 Essential (primary) hypertension
CPT/HCPCS: 99213; G0463

== ENCOUNTER 2024-11-06 09:51 | Outpatient (CLI) | payer MEDICARE, OTHER, SELFPAY ==
--- NOTE | ~2024-11-06 | XR_ITS ---
Lumbosacral Spine: AP and lateral views Clinical History: Pain Findings: The normal lordotic curve is maintained. The vertebral bodies and posterior elements are i ntact. There is advanced degenerative disc narrowing at L4-L5 and L5-S1. There is moderate facet arth ropathy, especially the lower lumbar spine. There is moderate degenerative disc narrowing at L1-L2. The sacroiliac joints are normally outlined. Impression: Advanced degenerative spondylosis of the lower lumbar spine, as above. Additional degenerative changes, as above. Reviewed, dictated and finalized at location M. [employer] Impression: Advanced degenerative spondylosis of the lower lumbar spine, as above. Additional degenerative changes, as above.
== END 2024-11-06 09:52 | disposition home or self-care (01) ==
PROVIDERS: PCP Family Medicine
DX: M47.896 Other spondylosis, lumbar region (principal); M51.369 Other intervertebral disc degeneration, lumbar region without mention of lumbar back pain or lower extremity pain
CPT/HCPCS: 72100

== ENCOUNTER 2025-02-18 14:45 | Outpatient (CLI) | payer MEDICARE, OTHER, SELFPAY ==
--- NOTE | ~2025-02-18 | MR_ITS ---
MRI of the lumbar spine Clinical History: Spondylosis Technique: Axial T2-weighted images, and sagittal T1-weighted, T2-weighted, and T2 fat-sat images wer e acquired. Findings: There is no fracture. There is minimal grade 1 retrolisthesis of L4 over L5, and of L5 over S1. There are reactive marrow edema changes about the L4-L5 disc space due to underlying degenerativ e disc disease. There are Schmorl's nodes at the inferior endplates of L1 and L3. At L1-L2, there is moderate to advanced degenerative disc narrowing. No significant disc bulge or her niation. No spinal canal stenosis. There is mild left neural foraminal narrowing. Right neural forame n preserved. At L2-L3, there is no disc bulge or herniation. There is mild facet arthropathy. No central canal sameer nosis or neural foraminal narrowing. At L3-L4, there is mild disc desiccation. There is minimal bulge and mild facet arthropathy. No centr al canal stenosis. There is moderate left neural foraminal narrowing, and minimal right neural forami nal narrowing. L4-L5, there is severe degenerative disc narrowing. There is minimal disc bulge and moderate facet ar thropathy. No central canal stenosis. There is moderate to severe bilateral neural foraminal narrowin g. At L5-S1, there is advanced degenerative disc narrowing. There is minimal disc bulge with moderate fa cet arthropathy. No central canal stenosis. There is moderate to severe bilateral neural foraminal na rrowing. Paravertebral soft tissues are unremarkable. Impression: Moderate to advanced degenerative spondylosis at the lower lumbar spine, as detailed above. Mild degenerative change at the upper lumbar spine, as above. Reviewed, dictated and finalized at [facility]. Impression: Moderate to advanced degenerative spondylosis at the lower lumbar spine, as det uriah above. Mild degenerative change at the upper lumbar spine, as above.
--- OUTSIDE RECORDS SUMMARY | 2025-02-18 15:12 | XMS_ITS | Data Portability ---
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 He has been going on for about 5 weeks, and this may be getting a little bit better. He has lost about 7 pounds because of the sore throat. He has not had any testing but states that whenever he brushes teeth he does have some bleeding. He smokes cigars, until last month and drinks about 2 drinks a day. He denies any ear pain. He did have a strep test which was negative, and was given amoxicillin but it really did not help. He was then given some lidocaine, helped a little bit and then fluconazole. He has not traveled, but is planned to go to [place]. He is currently on pantoprazole with, and thinks that is getting slightly better. He said it still hurts for almost anything to swallow. PHYSICAL EXAMINATION today reveals: Well developed, well nourished in no acute distress. Patient able to communicate verbally with a normal voice. GENERAL: Inspection of head reveals no significant scars, lesions, or masses with good facial symmetry. EYES: Extraocular movements were intact with normal gaze. HEAD AND FACE: Overall appearance appeared normal. No scars, lesions, or masses. Palpation of the face reveals no tenderness. Salivary glands are without masses, and salivary flow was clear from both [place]'s and Stensen's ducts. Facial nerve function was intact and symmetric EARS: Both external pinnas were symmetric and without lesions RIGHT external canal: normal, RIGHT tympanic membrane: clear and mobile. LEFT external canal: normal. LEFT tympanic membrane: clear and mobile. NOSE: External nose appeared straight; Septum was relatively straight nasal mucosa appeared normal. . MOUTH AND PHARYNX:Lips, and gums were unremarkable Exam of oral cavity revealed erythema and inflamed mucosa along the buccal regions, and his tongue, without exudates, or ulceration. There is no evidence of erythroplasia, or cancer., including oral mucosa, hard and soft palate were normal Tongue was normal Tonsils were small to absent with continued erythema in his posterior pharynx without exudates, and posterior pharynx, appeared within normal limits. Procedure: Informed consent was discussed and obtained. An explanation of the procedure was provided. The risks and benefits of the procedure, the risks and benefits of alternative procedures, as well as the possible consequences of not undergoing the procedure were discussed. Patient verbalized understanding and gives consent to proceed. SEPARATE PROCEDURE: After obtaining verbal consent the nose was topically anesthetized with as spray mix of xylocaine and afrin, a FIBEROPTIC EXAMINATION was performed. The inferior and middle turbinates were normal. The nasopharyngoscopy did reveal the eustachian tube and torus all appeared normal. the nasopharynx appeared normal. The adenoid tissue was small to absent. The epiglottis and hypopharyngeal huizar were again some erythematous, without evidence of lesions. Larynx revealed no masses, and the true vocal cords were normal in appearance and were mobile bilaterally, Pyriform huizar and posterior pharyngeal huizar were normal. NECK: Supple with no evidence of masses, and palpation for lymph nodes revealed no significant palpable lymphadenopathy; thyroid appeared normal and symmetric; trachea midline; overall appearance of neck appeared symmetrical. NEUROLOGICAL: Cranial nerves 2 through 12 intact to gross examination. SKIN: Warm and dry. PLAN: 1. Unclear what could be causing this erythema, possibly from medication effect, reflux, or thrush., I did recommend continued the course of Fluconazole that was given, as he is getting some relief with the medication, and he was reassured that there is no evidence of malignancy at this time 2. This should be followed with a course of some clotrimazole atrocious dissolve 1 p.o. 3 times daily for the next week or 2, and he can take them with him to [place]. 3. Contact me if continues to have further issues after the next month, or if he is in [place], he can seek additional medical care there if he continues to have symptoms. Not available 07/05/2024 16:31:11 09/17/2024 09/17/2024 1. Healthy lifestyle was encouraged, including low glycemic/low processed food diet and regular exercise. The patient declines lab work for today. It has been stable in the past. Medications can be refilled as needed. 2. Hypertension is stable under the current medication regimen of amlodipine. No medication changes at this time. Recommend continuing to monitor home blood pressure readings. Request that they report changes in numbers or problems with medication. Discussed continued lifestyle modifications for weight and blood pressure. 3. The patient follows with GI for his pancreatic insufficiency and his GERD. 4. The patient is a former smoker. Discussed low dose lung CT scan. He has a greater than [id number] history. Just quit last January. We will go ahead and order low dose lung CT scan to be done at [facility] in [place]. 5. The patient will otherwise follow up in six months or sooner as needed. MORRO alfaro Not available 09/17/2024 13:01:23 09/30/2024 09/30/2024 1. The patient s urine is indicative of a urinary tract infection and along with his symptoms, he did have some trace ketones, some light blood, trace protein, trace leukocytes. We will plan to go ahead and treat him with antibiotics and send the urine for culture. He does note that he thinks a lot of his fatigue is coming from his blood pressure being under 120. He notes he tends to feel like this when this happens and he checks his blood pressure daily at home and he has noted since having the UTI symptoms that his blood pressure has been under 120. We will try treatment for the UTI and just see if his blood pressure improves. I discussed that if it does not, to please let me know and we can always make adjustments to his blood pressure medicine as well. The patient noted understanding. 2. Discussed precautions with the patient and gave them signs and symptoms to look out for and precautions on when to call the clinic or go to the emergency department. MORRO alfaro Not available 09/30/2024 14:26:17 11/03/2024 11/03/2024 Suspect possible degenerative disc disease and arthritis along with some musculoskeletal issues. We will get him set up for physical therapy, do a prednisone taper and obtain an x-ray of the lumbar spine. If he fails to have improvement after physical therapy, recommend he follow up in the office. We reviewed worrisome signs and symptoms and when to notify the office. Plan of care reviewed and discussed with patient. Patient verbalizes understanding and has no questions. [email or web address] Not available 11/03/2024 15:15:45 Plan of Treatment Reminders Order Date Submit Date Provider Last Modified By Organization Details Last Modified Time Details Appointments Esteban khan Patient 20.EST 2024 10:00A M Dr. Hamilton Morgan Not available Not available Not available Lab urinaly sis, dipstic k 2023 024 [facility], [address] [place] [address], [id number], 09/30/2024 11:12:53 culture + sensiti vity, urine 2023 024 [facility], [address] [place] [address], [id number], 10/01/2024 11:56:[address] Referral physica l therapi st referra l [address] [facility], [address], [address], [place], [address], 11/24/2024 13:55:52 Procedures None recorde d. Surgeries None recorde d. Imaging XR, lumbosa cral spine, 2 or 3 view 2023 024 [facility], [facility], [address], 11/06/2024 13:57:46 LDCT, chest, for lung cancer screeni ng 2023 024 [email or web address], [facility], [place], [address], 09/28/2024 15:25:01 Medication Orders prednis one 10 mg tablet 2023 025 [facility][id number], [address] [facility], [place], [place], [id number], 02/15/2025 15:46:09 sulfame thoxazo le 800 mg-trim ethopri m 160 mg tablet 2023 [facility] #[id number], [address] [facility], [place], [place], [id number], 11/03/2024 14:23:47 amlodip ine 10 mg tablet 2023 [facility], [address] [place] [address], [id number], 09/17/2024 12:41:11 clotrim azole 10 mg sky 2023 024 [facility] #[id number], [address] [facility], [place], [place], [id number], 09/17/2024 12:13:36 Patient TargetsNo targets recorded. Patient InstructionsNo instructions recorded. Reason for Referral Physical Therapist Referral for Chronic low back pain Referring Physician: Iván Arcos, Family Medicine, Encounter Date: 11/03/2024 Results Created Date Observation Date Name Description Value Unit Range Abnormal Flag Note LastModifiedBy Organization Detail LastModifiedTime 09/30/20 24 09/30/2024 urina lysis , dipst ick manual urine dipstick pH value s of 5 or 9 indic ates a value <=5 or >=9. Speci fic gravi ty value of 1.005 indic ates a value of <=1.0 05 Speci fic gravi ty value of 1.030 indic ates a value of >=1.0 30 Not Available [facility] [address] [place] [address], [id number], 09/30/2024 11:12:53 09/30/2009/30/2024 urina lysis , dipst ick color YELLO Not Available [facility] [address] [place] [address], [id number], 09/30/2024 11:12:53 09/30/2009/30/2024 urina lysis , dipst ick appearance CLEAR Not Available [facility] [address] [place] [address], [id number], 09/30/2024 11:12:53 09/30/2009/30/2024 urina lysis , dipst ick sp gravity 1.025 1.005- 1.030 Not Available [facility] [address] [place] [address], [id number], 09/30/2024 11:12:53 09/30/2009/30/2024 urina lysis , dipst ick pH 5.5 5.0-7. 5 Not Available [facility] [address] [place] [address], [id number], 09/30/2024 11:12:53 09/30/2009/30/2024 urina lysis , dipst ick protein TRACE negati ve abnormal Not Available [facility] [address] [place] [address], [id number], 09/30/2024 11:12:53 09/30/2009/30/2024 urina lysis , dipst ick glucose NEG negati ve Not Available [facility] [address] [place] [address], [id number], 09/30/2024 11:12:53 09/30/2009/30/2024 urina lysis , dipst ick ketone TRACE negati ve abnormal Not Available [facility] [address] [place] [address], [id number], 09/30/2024 11:12:53 09/30/2009/30/2024 urina lysis , dipst ick bilirub NEG negati ve Not Available [facility] [address] [place] [address], [id number], 09/30/2024 11:12:53 09/30/20 24 09/30/2024 urina lysis , dipst ick blood TRACE negati ve abnormal Not Available [facility] [address] [place] [address], [id number], 09/30/2024 11:12:53 09/30/2009/30/2024 urina lysis , dipst ick urobil 0.2 <=1.0 Not Available [facility] [address] [place] [address], [id number], 09/30/2024 11:12:53 09/30/20 24 09/30/2024 urina lysis , dipst ick nitrite NEG negati ve Not Available [facility] [address] [place] [address], [id number], 09/30/2024 11:12:53 09/30/20 24 09/30/2024 urina lysis , dipst ick leuk TRACE negati ve abnormal Not Available [facility] [address] [place] [address], [id number], 09/30/2024 11:12:53 09/30/2010/03/2024 cultu re + sensi tivit y, urine urine culture and sens. PHILOMENA L URINE ACINE TOBAC TER BAUMA NNII COMPL EX/TIRADO EMOLY TICUS DATE/ TIME: 10/03 09:19 >100, 000 CFU/m L Antib iotic Name CARMEN mcg/m l Ampic illin /Sulb actam <=4/2 S Cefta zidim e 4 S Cefep jarvis <=2 S Genta micin <=2 S Merop enem <=1 S Trime thopr im/Salgado lfmet hoxaz <=2/3 8 S Tetra cycli ne <=4 S Tobra mycin <=2 S S=Rosalba cepti ble R=Res istan t I=Int ermed iate IB=Sp ecies poten tiall y may becom e resis tant to all B-lac michael drugs . Patie nt monit oring recom dania d. Avoid other /comb ined B-lac michael drugs . ESB=E xtend ed spect rum Beta- lacta nora (ESBL ) R*=Pr edict ed resis tant inter preta tion Not Available [facility] [address] [place] [address], [id number], 10/03/2024 10:20:37 09/30/20 24 10/01/2024 cultu re + sensi tivit y, urine urine culture and sens. PREL IM URINE GRAM NEGAT ALEXANDRA RODS DATE/ TIME: 10/01 10:55 >100, 000 CFU/m L Not Available [facility] [address] [place] [address], [id number], 10/01/2024 11:56:16 09/28/20 24 03/13/2024 LDCT, chest , for lung cance r akbar reardon No observ ation record ed. BARCODE Not Available 2023 17:45:25 11/06/20 24 11/06/2024 XR, lumbo sacra l spine , 2 or 3 view No observ ation record ed. [facility] [address] [place] [address], [place], [address], 11/07/2024 08:55:56 Result Notes None recorded. Problems Name Problem SNOMED Code Status Onset Date Resolution Date Notes Provider Name and Address Organization Details Recorded Time Pain in throat 225157568 Active 2023 Naveed Cazares MD [address] [place] [address], [phone], [facility] 4 16:28:35 Essential hypertension 33274347 Active 2023 Aspen Werner MD [address] [place], [address], [facility] 4 12:14:16 Acute urinary tract infection 670961149 Active 2023 Aspen Werner MD [address] [facility], [place], [address], [facility] 4 10:33:39 Painful mouth 934713052 Active 2024 Vy Shukla, [employer]ANGER, SECRETARY SPECIALIST [address] [facility], [place], [address], [facility] 5 16:15:55 Exocrine pancreatic insufficienc y 63087966 Active 2023 follows with GI Aspen Werner MD [address] [facility], [place], [address], [facility] 4 12:15:45 Chronic diarrhea 667048394 Active 2023 Hamilton Hamilton i, MD [address] [facility], [place], [address], [facility] 4 11:23:17 Gastroesopha geal reflux disease without esophagitis 310342083 Active 2023 Aspen Werner MD [address] [place] [address], [address], [facility] 4 12:14:19 Problem Notes None recorded. Procedures Surgical History Date Name Laterality Status Provider Name and Address Organization Details Recorded Time Colonoscopy with biopsy completed Not Available Health Note 05/18/2024 11:40:19 Imaging Results Imaging Date Name Status LastModified by Organiz ation Details LastModified Time 03/13/2024 LDCT, chest, for lung cancer screening completed BARCODE Information not available 09/28/2024 17:45:25 11/06/2024 XR, lumbosacral spine, 2 or 3 view completed [facility] [address] [place] [address], [place], [address], 11/07/2024 08:55:56 Procedure Notes None recorded. Medical Equipment None Reported. Allergies No known drug allergies Medications Name Sig Start Date Stop Date Status Note LastModified by Organization Details LastModified Time compound drug 09/17 completed Not Available Not Available Not Available lido2%nysta ntaciddiph1 2.5 112 SWISH AND SPIT 15ML BY MOUTH EVERY 4 HOURS NEEDED 09/17 completed Not Available Not Available Not Available clotrimazol e 10 mg sky DISSOLVE 1 SKY BY MOUTH THREE TIMES DAILY 09/17 completed Not Available Not Available Not Available nystatin 100,000 unit/mL oral suspension SWISH AND SWALLOW 5 ML BY MOUTH FOUR TIMES DAILY 02/15 completed Not Available Not Available Not Available polyethylen e glycol 3350 17 gram oral powder packet 05/25 completed Not Available Not Available Not Available tramadol 37.5 mg-acetamin ophen 325 mg tablet TAKE 1 TABLET BY MOUTH EVERY 6 HOURS NEEDED 05/25 completed Not Available Not Available Not Available Lidocaine Viscous 2 % mucosal solution SWISH AND SPIT 15ML BY MOUTH EVERY 3 HOURS NEEDED 06/18 completed Not Available Not Available Not Available hydrocodone 5 mg-acetamin ophen 325 mg tablet TAKE 1 TABLET BY MOUTH EVERY 6 HOURS NEEDED FOR PAIN 05/25 completed Not Available Not Available Not Available fluconazole 200 mg tablet TAKE 1 TABLET BY MOUTH FOR 14 DAY 09/17 completed Not Available Not Available Not Available sucralfate 1 gram tablet TAKE 1 TABLET BY MOUTH BEFORE MEALS AND AT BEDTIME 05/25 completed Not Available Not Available Not Available amlodipine 5 mg tablet TAKE 1 TABLET BY MOUTH DAILY 09/17 completed Not Available Not Available Not Available acyclovir 400 mg tablet TAKE 1 TABLET BY MOUTH FOUR TIMES DAILY FOR 7 DAYS 09/17 completed Not Available Not Available Not Available valacyclovi r 500 mg tablet take one tablet by mouth daily active Not Available Not Available No t Available sulfamethox azole 800 mg-trimetho prim 160 mg tablet TAKE 1 TABLET BY MOUTH EVERY 12 HOURS FOR 7 DAYS 11/03 completed Not Available Not Available Not Available doxycycline monohydrate 100 mg tablet TAKE 1 TABLET BY MOUTH TWICE DAILY 02/15 completed Not Available Not Available Not Available amoxicillin 500 mg tablet 06/18 completed Not Available Not Available Not Available pantoprazol e 20 mg tablet,carlyn yed release Take 1 tablet every day by oral route. 11/03 completed Not Available Not Available Not Available oxycodone-a cetaminophe n 5 mg-325 mg tablet TAKE 1 TABLET BY MOUTH EVERY 8 HOURS NEEDED FOR PAIN 05/25 completed Not Available Not Available Not Available oxycodone-a cetaminophe n 10 mg-325 mg tablet TAKE 1 TABLET BY MOUTH EVERY 6 HOURS NEEDED FOR PAIN 05/25 completed Not Available Not Available Not Available ropinirole 0.25 mg tablet TAKE 1 TABLET BY MOUTH EVERY DAY AT BEDTIME. MAY INCREASE FROM 0.25 MG TO 0.5 MG AFTER 2 DAYS 05/25 completed Not Available Not Available Not Available amlodipine 10 mg tablet TAKE 1 TABLET DAILY 2024 active Not Available Not Available Not Avai lable pantoprazol e 40 mg tablet,carlyn yed release TAKE 1 TABLET BY MOUTH EVERY 12 HOURS 05/25 completed Not Available Not Available Not Available Prevalite 4 gram powder for suspension in a packet 06/22 completed Not Available Not Available Not Available irbesartan 150 mg tablet 09/17 completed Not Available Not Available Not Available diazepam 5 mg tablet TAKE 1 TABLET BY MOUTH THREE TIMES DAILY NEEDED FOR MUSCLE SPASM 05/25 completed Not Available Not Available Not Available cholestyram ine-asparta me 4 gram oral powder for susp in a packet active Not Available Not Available Not Available cholestyram ine (with sugar) 4 gram powder for susp in a packet DISSOLVE CONTENTS OF 1 PACKET IN 2-6 OZ OF NONCARBON ATED BEVERAGE AND SWALLOW ONCE DAILY 09/17 completed Not Available Not Available Not Available Imodium A-D 09/17 completed Not Available Not Available Not Available sodium,pota ssium,mag sulfates 17.5 gram-3.13 gram-1.6 gram oral soln MIX AND DRINK DIRECTED 05/25 completed Not Available Not Available Not Available Creon 36,000 unit-114,00 0 unit-180,00 0 unit capsule,del ayed release TAKE 3 capsules with a large meal, 2 capsules with a medium size meal and 1 capsule with a snack active Not Available Not Available No t Available Stimulant Laxative Plus 8.6 mg-50 mg tablet TAKE 1 TABLET BY MOUTH TWICE DAILY NEEDED FOR CONSTIPAT ION 05/25 completed Not Available Not Available Not Available Vitals Date Recorded Body height Body mass index (BMI) Body weight Body temperature Heart rate Systolic blood pressure Diastolic blood pressure Provider Name and Address Organization Details Last Updated DateTime 4 172.72 cm 25.7 kg/m2 45866.3 9 g 97.3 [degF] 68 /min 127 mm[Hg] 67 mm[Hg] Magali Heredia [facility] 4 16:09:50 Date Recorded Body height Body mass index (BMI) Body weight Body temperature Respiratory rate Oxygen saturation Oxygen saturation in Arterial blood by Pulse oximetry Heart rate Systolic blood pressure Diastolic blood pressure Provider Name and Address Organization Details Last Updated DateTime 4 172.72 cm 25.1 kg/m2 82749.4 6 g 97.2 [degF] 18 /min 97 % 97 % 61 /min 116 mm[Hg] 74 mm[Hg] [facility] 4 12:11:49 Date Recorded Body height Body mass index (BMI) Body weight Body temperature Respiratory rate Oxygen saturation Oxygen saturation in Arterial blood by Pulse oximetry Heart rate Systolic blood pressure Diastolic blood pressure Provider Name and Address Organization Details Last Updated DateTime 4 172.72 cm 25.2 kg/m2 57917.9 g 96.8 [degF] 20 /min 97 % 97 % 71 /min 114 mm[Hg] 70 mm[Hg] [facility] 4 10:19:00 Date Recorded Body height Body mass index (BMI) Body weight Respiratory rate Body temperature Heart rate Oxygen saturation Oxygen saturation in Arterial blood by Pulse oximetry Systolic blood pressure Diastolic blood pressure Provider Name and Address Organization Details Last Updated DateTime 4 172.72 cm 25.8 kg/m2 73264.7 g 18 /min 97.5 [degF] 68 /min 98 % 98 % 122 mm[Hg] 62 mm[Hg] Sandy aguilar [facility] 4 14:24:51 Date Recorded Body height Body mass index (BMI) Body weight Respiratory rate Heart rate Oxygen saturation Oxygen saturation in Arterial blood by Pulse oximetry Systolic blood pressure Diastolic blood pressure Provider Name and Address Organization Details Last Updated DateTime 5 172.72 cm 26.2 kg/m2 33950.8 9 g 18 /min 89 /min 97 % 97 % 152 mm[Hg] 82 mm[Hg] Betty Long [facility] 15:47:54 Social History Question Answer Notes LastModified by Organizat ion Details LastModified Time Tobacco Smoking Status Former Smoker Virgie plascencia, [facility] 09/17/2024 12:12:28 Do You Have An Advance Directive? No [email or web address] Information not available 06/20/2024 What Is Your Level Of Alcohol Consumption? Moderate [email or web address] Information not available 06/20/2024 How Many Times Per Week Do You Consume Alcohol? 5-7 Times Per Week [email or web address] Information not available 06/20/2024 What Is Your Level Of Caffeine Consumption? Moderate [email or web address] Information not available 06/20/2024 Are You Currently Employed? 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 5-7 Times Per Week [email or web address] Information not available 06/20/2024 When Did You Quit Smoking? 02/08 [email or web address] Information not available 06/16/2024 Do You Have A Medical Power Of Solar Energy Advisor? No [email or web address] Information not available 06/20/2024 What Was The Date Of Your Most Recent Tobacco Screening? 06/22/2024 [email or web address] Information not available 06/20/2024 What Is Your Relationship Status? [email or web address] Information not available 06/20/2024 Do You Use Any Illicit Or Recreational Drugs? No [email or web address] Information not available 06/20/2024 Sex: Unknown Functional Status Question Answer Note LastModified by Organization D etails LastModified Time What is your exercise level? Moderate [email or web address] Information not available 06/20/2024 Mental Status None recorded. Family History Relationship Description Onset Age of this Age Resolved Age Notes LastModified by Organization Details LastModified Time Mother Arthritis [email or web address] Not available 05/18/2024 11:40:18 Mother Family history of malignant neoplasm [email or web address] Not available 2023 11:40:18 Mother Heart disease [email or web address] Not available 2023 11:40:18 Brother Family history of malignant neoplasm [email or web address] Not available 2023 11:40:18 Unspecified Relation Hypertensive disorder [email or web address] Not available 2023 11:40:18 Medical History Condition Response High Blood Pressure Y COPD N Depression N Anxiety Disorder N Arthritis N Cancer N Stroke N Fibromyalgia N Kidney Disease N Bleeding Disorder N Asthma N Seizures N Attention-deficit Hyperactivity Disorder N Thyroid Problems N Anemia N Diabetes N Hyperlipidemia N Heart Disease N Osteoporosis N Immunizations Vaccine Type Date Status Note Provider Nam e and Address Organization Details Recorded Time Influenza, adjuvanted, trivalent, PF 4 completed Aspen Werner MD [address] [place] [address], [phone], [facility] 09/21/2024 09:48:07 Influenza, adjuvanted, quadrivalent, PF 2 completed [facility] 06/18/2024 11:47:34 Influenza, adjuvanted, quadrivalent, PF 3 completed [facility] 06/18/2024 11:47:34 COVID-19, mRNA, LNP-S, PF, 30 mcg/0.3 mL dose 1 completed [facility] 06/18/2024 11:47:34 COVID-19, mRNA, LNP-S, PF, 30 mcg/0.3 mL dose 1 completed [facility] 06/18/2024 11:47:34 COVID-19, mRNA, LNP-S, PF, 30 mcg/0.3 mL dose 1 completed [facility] 06/18/2024 11:47:34 COVID-19, mRNA, LNP-S, bivalent, PF, 50 mcg/0.5 mL or 25mcg/0.25 mL dose 2 completed [facility] 06/18/2024 11:47:34 Influenza, split virus, trivalent, preservative 3 completed [facility] 06/18/2024 11:47:34 Influenza, split virus, trivalent, PF 3 completed [facility] 06/18/2024 11:47:34 Past Encounters Encounter ID Performer Location Encounter Start Date Encounter Closed Date Diagnosis/Indication Diagnosis SNOMED-CT Code Diagnosis ICD10 Code Diagnosis Note [id number] Hamilton Morgan MD [facility] 2nd Gastroent erology (MD) [address] [place] [phone] 05/25/2024 10:45:39 05/25/2024 16:57:40 Exocrine pancreatic insufficiency 81542403 K86.81 Chronic diarrhea 7562017 09 K52.9 [id number] Alphonso Werner MD [facility] (MD) [facility] [place] [address] 06/18/2024 11:40:15 06/18/2024 14:10:22 Candidiasis of mouth 88821553 B37.0 Sore throat 915001870 J0 2.9 Former hea vy tobacco smoker 7870641800 83693 Z87.989 [id number] Naveed Cazares MD [facility] 4th ENT (MD) [address] [facility] [place] [address] 06/22/2024 16:03:52 06/22/2024 17:36:37 Candidiasis of mouth 57218722 B37.0 Pain in throat 269456017 R07.0 [id number] Aspen Werner MD [facility] (MD) [facility] [place] [address] 09/17/2024 11:59:16 09/17/2024 12:53:23 Ex-smoker 2964864 Z87.891 Exocrine p ancreatic insufficiency 66982799 K86.81 Essential hypertension 77691306 I10 Gastroesop hageal reflux disease without esophagitis 315258814 K21.9 Needs infl uenza immunization 580480465 Z23 [id number] Aspen Werner MD [facility] (MD) [facility] [place] [address] 09/30/2024 10:12:05 09/30/2024 14:09:40 Increased frequency of urination 256044146 R35.0 Acute urin frederic tract infection 433900010 N39.0 [id number] Aspen Werner MD [facility] (MD) [address] [place] [address] 11/03/2024 14:15:57 11/03/2024 15:12:25 Chronic low back pain 804033259 M54.50 G89.29 [id number] Erica [facility]) [address] [place] [address] 02/15/2025 15:21:43 02/15/2025 16:53:38 Painful mouth 918427660 K13.79 Health Concerns Section Related Observation LastModified by Organization Detai ls LastModified Time None Recorded Concern Status LastModified by Organization Details LastModified Time None Recorded Advance Directives Directive N: Payers Encounter Date Sequence Insurance Name Policy Number Policy Shah Covered Member ID Shah Member ID Guarantor Name 06/22/2024 1 [place] Matthew Benavides [id number] Matthew Benavides 09/17/2024 1 [place] Matthew Benavides [id number] Matthew Benavides 09/30/2024 1 [place] Matthew Benavides [id number] Matthew Benavides 09/30/2024 2 [employer] - FOR LIFE (MEDICARE SUPPLEMENT) Matthew Benavides [id number] Matthew Benavides 11/03/2024 1 [place] Matthew Benavides [id number] Matthew Benavides 11/03/2024 2 [employer] - FOR LIFE (MEDICARE SUPPLEMENT) Matthew Benavides [id number] Matthew Benavides Notes Date Note Type Note Provider Name and Address Organization Details Recorded Time 09/17/2024 text/html The patient is h ere today for a new patient visit to establish care. He was previously a patient of Dr. Leo in [place]. He denies any concerns at this time. [place]oved to the area 16 years ago. -colonoscopy: 06/2023, to repeat in 2027-flu shot: will get today-[id number]: Notes that his sore throat has improved. PGV-WWK-pazykyhyre insufficiency sh- is wily bruce (also my patient)-have the 2 sons that live near each other in [facility] Did quit smoking last january. Has a >20 pack year smoking history. Aspen Werner MD [address] [place] [address], [phone], [facility] 09/21/2024 09:48:16 09/30/2024 text/html The patient is h ere today for frequent urination and fatigue. He is having some dysuria, urinary frequency and urgency. He denies hematuria and fever. His fatigue has been going on for about the same amount of time as his urinary symptoms. notes some back pain with both sides.no dysuria. Aspen Werner MD [address] [place] [address], [phone], [facility] 10/04/2024 20:54:55 11/03/2024 text/html This 79-year-old male is here today with complaints of low back pain. Patient reports this has been ongoing for one to two years. Denies any overt trauma or injury. Pain is located to the mid lower back and extends across the entire back to the right and left. Occasionally feels pain go into his buttocks bilaterally. Pain is the worst when he goes from a sitting to standing or lying to standing position. Once he is sitting or lying or even up walking, pain is minimal. Denies any radiculopathy symptoms, leg weakness, numbness or tingling. No bowel or bladder dysfunction. Has tried acetaminophen with no relief. Iván Arcos, SHREDDING MACHINE KNIFE CHANGER, SECRETARY SPECIALIST [address] [place] [address], [phone], [facility] 11/03/2024 15:54:22
--- OUTSIDE RECORDS SUMMARY | 2025-02-18 15:12 | XMS_ITS | Clinical Summary ---
Author Organization [facility] Address [address] [place] [address] Care Team Providers Care Nurse Examiner Name Role Phone Unavailable Primary Care Provider Unavailabl e Social History Tobacco Use Types Packs/Day Years Used Date Smoking Tobacco: Never Assessed Sex and Gender Information Value Date Recorded Sex Assigned at Not on file Legal Sex Male 7:18 PM CDT Gender Identity Not on file Sexual Orientation Not on file Plan of Treatment Health Maintenance Due Date Last Done Comments Hepatitis C 1963 DTaP, Tdap and Td Vaccines ( 1 - Tdap) 1966 Zoster Vaccines (1 of 2) 1997 Pneumococcal Vaccine: 65+ Ye ars (1 of 1 - PCV) 2012 RSV Immunization or 60+ Years (1 - 1-dose 75+ series) 2022 COVID-19 Vaccine ( - 2023-2 5 season) 2024 Influenza Adult (#1) 2024 Meningococcal B Vaccine Aged Out No l onger eligible based on patient's age to complete this topic Meningococcal Vaccine Aged Out No shyam ashley eligible based on patient's age to complete this topic RSV Immunizations Under 20 Months Aged Out No longer eligible based on patient's age to complete this topic
== END 2025-02-18 14:46 | disposition home or self-care (01) ==
LOC: ANHIMG 14:48
PROVIDERS: PCP Family Medicine; Visit Provider Nurse Practitioner Adult Health
DX: M47.816 Spondylosis without myelopathy or radiculopathy, lumbar region (principal)
CPT/HCPCS: 72148

== ENCOUNTER 2025-05-13 13:55 | Outpatient (CLI) | payer MEDICARE, OTHER, SELFPAY ==
--- NOTE | ~2025-05-13 | CT_ITS ---
CT Scan of the Chest without Contrast: Clinical Indication: Lung cancer screening, nicotine dependence Technique: Contiguous sections were acquired throughout the chest without intravenous contrast. Dose reduction technique was used on this scan by utilizing automated exposure control and iterative recon struction technique. The dose-length product (DLP) was 91.27 mGy-cm. COMPARISON: 03/13/2024 Findings: There is no evidence of any significant mediastinal, hilar or axillary lymphadenopathy. Extensive cor onary artery calcifications are present. There is no evidence of pleural or pericardial effusion. 4 mm right middle lobe pulmonary nodule is unchanged (axial image 71). There is mild to moderate pulm onary emphysema. Images through the upper abdomen reveal no abnormalities. Impression: Lung RADS 2: Benign. 12 month follow-up screening CT advised. Reviewed, dictated and finalized at [facility]. Impression: Lung RADS 2: Benign. 12 month follow-up screening CT advised.
== END 2025-05-13 13:56 | disposition home or self-care (01) ==
PROVIDERS: PCP Family Medicine; Visit Provider Family Medicine
DX: Z12.2 Encounter for screening for malignant neoplasm of respiratory organs (principal); Z87.891 Personal history of nicotine dependence
CPT/HCPCS: 71271

== ENCOUNTER 2025-10-11 14:55 | Outpatient (CLI) | payer MEDICARE, OTHER, SELFPAY ==
--- NOTE | ~2025-10-11 | XR_ITS ---
XR lumbar spine min 4V Indication: M47.816 - Spondylosis without myelopathy or radiculopathy... Comparison: None Findings: Grade 1 anterolisthesis of L4 on L5, no fracture identified. No subluxation with flexion and extension. Severe loss of disc height at L4-5 and L5-S1. Soft tissue vascular calcifications are noted. Impression: No acute abnormality. Reviewed, dictated and finalized at location P. ROOM WORKER Impression: No acute abnormality.
--- OUTSIDE RECORDS SUMMARY | 2025-10-11 17:38 | XMS_ITS | Clinical Summary ---
Author Organization [facility] Address [address] [place] [address] Care Team Providers Care Commercial Sales Consultant Name Role Phone Unavailable Primary Care Provider [...] Td Vaccines ( 1 - Tdap) 1966 Pneumococcal Vaccine: 50+ Ye ars (1 of 1 - PCV) 1997 Zoster Vaccines (1 of 2) 1997 RSV Immunization or 60+ Years (1 - 1-dose 75+ series) 2022 COVID-19 Vaccine ( - 2024-2 6 season) 2025 Influenza Adult (#1) 2025 Hepatitis A Vaccines Aged Out No long er eligible based on patient's age to complete this topic Meningococcal B Vaccine Aged Out No l onger eligible based on patient's age to complete this topic Meningococcal Vaccine Aged Out No shyam ashley eligible based on patient's age to complete this topic RSV Immunizations Under 20 Months Aged Out No longer eligible based on patient's age to complete this topic
== END 2025-10-11 14:56 | disposition home or self-care (01) ==
PROVIDERS: PCP Family Medicine; Visit Provider Nurse Practitioner Adult Health
DX: M47.816 Spondylosis without myelopathy or radiculopathy, lumbar region (principal)
CPT/HCPCS: 72110

== ENCOUNTER 2025-10-15 11:15 | Outpatient (CLI) | payer MEDICARE, OTHER, SELFPAY ==
--- NOTE | ~2025-10-15 | XR_ITS ---
EXAMINATION: SCOLIOSIS DATE: 10/15/2025 13:22 TILE POWER SHEAR OPERATOR INDICATION: Scoliosis TECHNIQUE: Standing AP and lateral views of the thoracolumbar spine FINDINGS: There are 12 rib bearing thoracic vertebral bodies and 5 non-rib bearing lumbar type vertebral bodies. There is no listhesis, compression deformity or vertebral body anomalies. There is multilevel cervical, thoracic and lumbar spondylosis. There is advanced disc narrowing and endplate degen erative change at L4-5 and L5-S1 with associated facet hypertrophy. There is atherosclerosis of the aorta. No significant scoliosis. No paraspinal soft tissue abnormality. No fracture, subluxation or dislocation. IMPRESSION: 1. Multilevel spondylosis of the cervical, thoracic and lumbar spine most severe in the lower lumbar spine. 2. No vertebral body anomalies. Reviewed, dictated and finalized at location I. POWER SHEAR OPERATOR IMPRESSION: 1. Multilevel spondylosis of the cervical, thoracic and lumbar spine most monie re in the lower lumbar spine. 2. No vertebral body anomalies.
--- OUTSIDE RECORDS SUMMARY | 2025-10-15 11:19 | XMS_ITS | Clinical Summary ---
Author Organization [facility] Address [address] [place] [address] Care Team Providers Care Aluminum Pool Installer Name Role Phone Unavailable Primary Care Provider [...]
== END 2025-10-15 11:16 | disposition home or self-care (01) ==
PROVIDERS: PCP Family Medicine; Visit Provider Neurological Surgery
DX: M47.816 Spondylosis without myelopathy or radiculopathy, lumbar region (principal); M47.892 Other spondylosis, cervical region; M47.894 Other spondylosis, thoracic region
CPT/HCPCS: 72082